=== PATIENT | female | born 1940 | race Caucasian/White ===

== ENCOUNTER → 2023-05-27 | Outpatient (REF) | payer MEDICARE, BC, SELFPAY | LOC: DHSLP | PROVIDERS: ATTENDING PHYSICIAN Internal Medicine Cardiovascular Disease; FAMILY PHYSICIAN Internal Medicine Geriatric Medicine | DX: G47.33 Obstructive sleep apnea (adult) (pediatric) (principal) | CPT/HCPCS: 95800 ==

== ENCOUNTER → 2023-06-04 12:07 | Outpatient (REF) | payer MEDICARE, BC, SELFPAY | LOC: CLAB 12:07 | PROVIDERS: ATTENDING PHYSICIAN Obstetrics & Gynecology | DX: N39.0 Urinary tract infection, site not specified (principal) | CPT/HCPCS: 87086 ==

== ENCOUNTER → 2023-06-09 07:13 | Outpatient (REF) | payer MEDICARE, BC, SELFPAY ==
[2023-06-09 07:53] LABS: % Basophils 0.7 % (0-2); % Eosinophils 2.2 % (0-6); % Immature Granulocytes 0.9 % (0-0.5); % Monocytes 10.9 % (1.7-9.3); % Neutrophils 59.3 % (42.2-75.2); Absolute Eosinophils 0.1 10^3/uL (0-0.7); Absolute Immature Granulocytes 0.1 10^3/uL (0-0.05); Absolute Lymphocytes 1.5 10^3/uL (1.2-3.4); Absolute Monocytes 0.6 10^3/uL (0.1-0.6); Absolute Neutrophils 3.5 10^3/uL (1.4-6.5); Hematocrit 45.6 % (37.0-47.0); Hemoglobin 15.1 g/dL (12.0-16.0); Mean Corp Hgb Conc. 33.1 g/dL (33.0-37.0); Mean Corpuscular Hgb 27.5 pg (27.0-31.0); Mean Corpuscular Volume 83.1 fL (81.0-99.0); Mean Platelet Volume 9.3 fL (7.4-10.4); Nucleated Red Blood Cells % 0 %; Platelet Count 230 10^3/uL (130-400); Red Blood Cell Count 5.49 10^6/uL (4.20-5.40); Red Cell Dist. Width 14.5 % (11.5-14.5); White Blood Cell Count 5.9 10^3/uL (4.8-10.8)
[2023-06-09 08:35] LABS: ALT (SGPT) 25 U/L (0-35); AST (SGOT) 31 U/L (14-36); Albumin 3.8 g/dl (3.5-5.0); Alkaline Phosphatase 97 U/L (38-126); Blood Urea Nitrogen 20 mg/dl (7-17); Calcium 9.8 mg/dl (8.4-10.2); Carbon Dioxide 30 mmol/L (22-30); Chloride 100 mmol/L (98-107); Glucose 94 mg/dl (70-99); HDL Cholesterol 44 mg/dl; Iron 89 ug/dl (37-170); LDL Cholesterol, Calculated 117 mg/dl; Magnesium 2.4 mg/dl (1.6-2.3); Sodium 137 mmol/L (135-145); Total Bilirubin 0.7 mg/dl (0.2-1.3); Total Cholesterol 196 mg/dl (50-199); Total Protein 6.6 g/dl (6.3-8.2); Triglyceride 176 mg/dl (10-149); Very Low Density Lipoprotein 35 mg/dl (0-30); eGFR > 60.00
[2023-06-09 08:46] LABS: Percent Saturation 28 % (20-50); Total Iron Binding Capacity 309 ug/dl (265-497)
[2023-06-09 08:48] LABS: Intact PTH 18.3 pg/ml (13.6-85.8)
[2023-06-09 08:53] LABS: Erythrocyte Sed Rate 4 mm/hour (0-20)
[2023-06-09 08:57] LABS: Vitamin D, 25-OH*** 68.5 ng/mL (30-80)
[2023-06-09 09:14] LABS: Ferritin 62.4 ng/ml (11.1-264.0); TSH 0.03 uIU/ml (0.47-4.68)
[2023-06-09 09:22] LABS: Free T4 1.25 ng/dl (0.78-2.19)
[2023-06-09 09:52] LABS: Folate > 20.0 ng/ml (2.76-20); Vitamin B12 801 pg/ml (239-931)
== END ==
LOC: REG 07:13
PROVIDERS: ATTENDING PHYSICIAN Internal Medicine Geriatric Medicine
DX: I48.0 Paroxysmal atrial fibrillation (principal); I10 Essential (primary) hypertension; I34.0 Nonrheumatic mitral (valve) insufficiency; E78.5 Hyperlipidemia, unspecified; R30.0 Dysuria; R06.02 Shortness of breath; K21.9 Gastro-esophageal reflux disease without esophagitis; F51.01 Primary insomnia; R53.83 Other fatigue; R53.82 Chronic fatigue, unspecified; R00.2 Palpitations; Z13.31 Encounter for screening for depression; E04.2 Nontoxic multinodular goiter; R55 Syncope and collapse; E55.9 Vitamin D deficiency, unspecified; E53.8 Deficiency of other specified B group vitamins
CPT/HCPCS: 36415; 71046; 80053; 80061; 82306; 82533; 82607; 82728; 82746; 83540; 83550; 83735; 83970; 84439; 84443; 85025; 85652; 86140

== ENCOUNTER → 2023-06-11 07:49 | Outpatient (REF) | payer MEDICARE, BC, SELFPAY | LOC: RAD 07:49 | PROVIDERS: ATTENDING PHYSICIAN Internal Medicine Cardiovascular Disease; FAMILY PHYSICIAN Internal Medicine Geriatric Medicine | DX: I65.23 Occlusion and stenosis of bilateral carotid arteries (principal) | CPT/HCPCS: 93880 ==

== ENCOUNTER → 2023-07-01 08:28 | Outpatient (REF) | payer MEDICARE, BC, SELFPAY ==
[2023-07-01 09:21] LABS: Free T4 1.19 ng/dl (0.78-2.19)
[2023-07-01 09:35] LABS: TSH 0.99 uIU/ml (0.47-4.68)
== END ==
LOC: OIDL 08:28
PROVIDERS: ATTENDING PHYSICIAN Internal Medicine Geriatric Medicine
DX: I48.0 Paroxysmal atrial fibrillation (principal)
CPT/HCPCS: 36415; 84439; 84443

== ENCOUNTER → 2023-08-27 14:22 | Outpatient (REF) | payer MEDICARE, BC, SELFPAY | LOC: RAD 14:22 | PROVIDERS: ATTENDING PHYSICIAN Nurse Practitioner Family; FAMILY PHYSICIAN Internal Medicine Geriatric Medicine | DX: M25.512 Pain in left shoulder (principal); M25.511 Pain in right shoulder; Z91.81 History of falling | CPT/HCPCS: 73030 ==

== ENCOUNTER → 2023-09-09 13:18 | Outpatient (REF) | payer MEDICARE, BC, SELFPAY | LOC: RCS 13:18 | PROVIDERS: ATTENDING PHYSICIAN Internal Medicine Cardiovascular Disease; FAMILY PHYSICIAN Internal Medicine Geriatric Medicine | DX: I34.0 Nonrheumatic mitral (valve) insufficiency (principal) | CPT/HCPCS: 93306 ==

== ENCOUNTER 2023-12-17 12:43 | Emergency (ER) | payer MEDICARE, BC, SELFPAY ==
[2023-12-17 12:45] VITALS: BP 140/85
--- NOTE | 2023-12-17 12:49 | ED.PDOC.TRB ---
ED Provider Triage
-
Patient seen by provider in Triage?: Seen in Triage
83-year-old female presents with 2 to 3 days worth of significant mid abdominal pain. Initially was associated with nonbloody diarrhea. No fever she is nauseous without vomiting. History of breast cancer but no other abdominal surgical history.
Tender diffusely on exam. She also has some urinary symptoms. Labs ordered. CT with IV contrast ordered. No chest pain. Sent in by PMD.
[2023-12-17 13:01] LABS: % Basophils 0.4 % (0-2); % Eosinophils 1.1 % (0-6); % Immature Granulocytes 0.7 % (0-0.5); % Lymphocytes 19.2 % (20.5-51.1); % Monocytes 6.9 % (1.7-9.3); % Neutrophils 71.7 % (42.2-75.2); Absolute Eosinophils 0.1 10^3/uL (0-0.7); Absolute Immature Granulocytes 0.1 10^3/uL (0-0.05); Absolute Lymphocytes 1.6 10^3/uL (1.2-3.4); Absolute Monocytes 0.6 10^3/uL (0.1-0.6); Absolute Neutrophils 5.9 10^3/uL (1.4-6.5); Hematocrit 43.2 % (37.0-47.0); Hemoglobin 14.9 g/dL (12.0-16.0); Mean Corp Hgb Conc. 34.5 g/dL (33.0-37.0); Mean Corpuscular Volume 81.1 fL (81.0-99.0); Mean Platelet Volume 9.6 fL (7.4-10.4); Nucleated Red Blood Cells % 0 %; Platelet Count 229 10^3/uL (130-400); Red Blood Cell Count 5.33 10^6/uL (4.20-5.40); White Blood Cell Count 8.3 10^3/uL (4.8-10.8)
[2023-12-17 13:21] LABS: ALT (SGPT) 22 U/L (0-35); AST (SGOT) 27 U/L (14-36); Albumin 4.3 g/dl (3.5-5.0); Alkaline Phosphatase 124 U/L (38-126); Blood Urea Nitrogen 15 mg/dl (7-17); Calcium 9.5 mg/dl (8.4-10.2); Carbon Dioxide 27 mmol/L (22-30); Chloride 99 mmol/L (98-107); Glucose 100 mg/dl (70-99); Lipase 190 U/L (23-300); Potassium 4.2 mmol/L (3.5-5.1); Sodium 136 mmol/L (135-145); Total Bilirubin 0.8 mg/dl (0.2-1.3); Total Protein 6.9 g/dl (6.3-8.2); eGFR > 60.00
--- NOTE | 2023-12-17 13:35 | ED.GENMED ---
History of Present Illness
General
Chief Complaint: Abdominal Symptoms
Source: patient and records
Exam Limitations: none
Time Seen by Provider: 12/17/23 13:33
Nursing documentation reviewed up to this point in time: agreed with
History of Present Illness
History of Present Illness:
Patient is a 83-year-old female presents to the emergency department complaining of lower abdominal pain that has been severe and started 2 days ago in the morning. Patient states that any food increases the pain. Patient was sent in by her
primary care physician. Patient is nauseous without vomiting. Patient had liquidy diarrhea and became very diaphoretic second to the pain 2 days ago. Patient went to her physician and then was referred to the emergency department. Patient denies
fever, chills, shortness of breath, chest pain, melena or hematochezia. Patient does have a history of diverticular disease.
Past History
Past History
ED Past Medical History: Arrthythmia, Cancer (Breast), GERD, HTN and Other (Breast cancer status post radiation therapy status post bilateral mastectomies, previous lower GI bleed, Lyme's disease, bundle branch block, neurocardiogenic syncope)
ED Past Surgical History: Other (Double mastectomy with reconstruction as well as abdominoplasty)
Social History
Tobacco: Non-smoker
Alcohol: None
Drug: None
Personal:
Family History
Family History: Other (COPD, coronary disease, heart failure)
Review of Systems
Review of Systems
All Other Systems: ROS reviewed and negative except as documented in HPI and ROS
Constitutional: Reports no symptoms
EENT: Reports no symptoms
Respiratory: Reports no symptoms
Cardiac: Reports no symptoms
ABD/GI: Reports abdominal pain, nausea, diarrhea and anorexia; Denies vomiting, bloody stools or black stools
: Reports no symptoms
Musculoskeletal: Reports no symptoms
Skin: Reports no symptoms
Neurological: Reports no symptoms
Hematologic/Lymphatic: Reports no symptoms
Psychiatric: Reports no symptoms
Phy Exam
Physical Exam
Physical Exam:
Physical Exam
General: mild distress, alert and appropriate, well nourished, well hydrated
HENT: Normocephalic, supple with no lymphadenopathy, no thyromegaly
Eyes: Clear sclera, conjuctiva without injection
Heart: Regular rhythm and rate. No S3, S4. No murmur. No NVD
Lungs: No respiratory distress, no stridor, lung sounds clear and equal bilaterally, chest wall symmetrical and nontender
Abdomen: Soft, moderate lower abdominal tenderness without guarding or rebound, no organomegaly, no CVA tenderness, BS good
Neuro: Alert and oriented x 3, CN II - XII intact, no motor focality, no cerebellar dysfunction
Skin: no rash
Psychiatric: well kept. interactive and cooperative
Extremities: No edema, cyanosis, tenderness
Course
Orders/Labs/Results
Orders:
Orders
12/17/23 12:49
CT Abd/pelvis W Iv Cont Urgent
Comment:
Reason For Exam: abdominal pain
12/17/23 12:54
Complete Blood Count/With Diff Urgent
Comprehensive Metabolic Panel Urgent
Lipase Urgent
12/17/23 14:29
Urinalysis Reflex To Culture Urgent
Date Specimen was Collected: 12/17/23
Time Specimen was Collected: 14:17
Urine Microscopic Reflex Cult Urgent
Urine Culture Urgent
TOM Source: U
Specimen Description:
Date Specimen was Collected: 12/17/23
Time Specimen was Collected: 14:17
12/17/23 14:40
0.9% Sodium Chloride 1000 ml [Nss] 1,000 ml IV BOLUS
HYDROmorphone [Dilaudid] 0.5 mg IV NOW STA
Ondansetron Injectable [Zofran] 4 mg IV NOW STA
Abnormal Lab Results
12/17/23 12/17/23
12:54 14:29
Abs Immat Gran (auto) 0.1 H 10^3/uL
(0-0.05)
Immature Gran % 0.7 H %
(0-0.5)
Lymphocytes % 19.2 L %
(20.5-51.1)
Glucose 100 H mg/dl
(70-99)
Ur Occult Blood Reflex Trace A
(Negative)
Urine Nitrite (Reflex) Positive A
(Negative)
Leukocyte Esterase Rfl 2+ A
(Negative)
Urine WBC (Reflex) 50-60 A /HPF
(0-5)
Urine Bacteria (Reflex) Few A
(Negative)
12/17/23 12:54
12/17/23 12:54
Vital Signs
Initial and Last Documented VS:
Initial Vital Signs
Temp Pulse Resp BP Pulse Ox
97.8 F 89 18 140/85 99
12/17/23 12:45 12/17/23 12:45 12/17/23 12:45 12/17/23 12:45 12/17/23 12:45
Last Documented Vital Signs
Temp Pulse Resp BP Pulse Ox
97.8 F 76 18 117/88 98
12/17/23 12:45 12/17/23 14:56 12/17/23 12:45 12/17/23 14:56 12/17/23 14:30
*Radiology
Radiology exam reviewed: radiology read reviewed (Diffuse enteritis)
*Pulse Oximetry
Patient hypoxic: no
*EKG
Interpreted by ED Provider?: NA
*Candy Packer Interpretation
Rate: Candy Packer- N/A
*Critical Care Note
Total Time (30-74mins, 75-104mins- exclusive of procedures): Not Applicable
Update Note
Update Note:
Patient's labs look fairly normal although does appear the patient has a shift to the left and may have cystitis. Presented this to the patient and suggested admission. Patient refused. Patient will be discharged home.
ED Attending Note
-
Portions of this chart may have been created with voice recognition software.� Occasional wrong word or��sound alike� substitutions may have occurred due to the inherent limitations of voice recognition software.
Discharge Plan
Departure
Patient Disposition: Home (Routine Discharge)
Date of Disposition: 12/17/23
Time of Disposition: 15:14
Patient with high blood pressure during this ER visit?: No
Condition: Fair
Covid-19: Not Applicable
Discharge Problem:
Acute inflammatory enteritis
Instructions: Diarrhea in teens and adults, [place] Diet, Abdominal Pain
Prescriptions:
New
metronidazole 500 mg tablet
500 mg PO TID Qty: 30 0RF
ondansetron 8 mg tablet,disintegrating
8 mg PO TID PRN (Reason: nausea and vomiting) Qty: 10 0RF
levofloxacin 500 mg Tablet
500 mg PO DAILY Qty: 10 0RF
No Action
red yeast rice 600 MG capsule
1 dose PO DAILY@1600
ascorbic acid (vitamin C) [Vitamin C] 500 MG tablet
500 mg PO NOON
DAVID-e 200 MG tablet
200 mg PO NOON
Eliquis 5 MG tablet
5 mg PO BID Qty: 60 3RF
omeprazole magnesium [Prilosec OTC] 20 MG tablet,delayed release (DR/EC)
20 mg PO DAILY Qty: 1 0RF
furosemide 40 mg Tablet
40 mg PO DAILY Qty: 30 0RF
potassium chloride 10 mEq tablet extended release
10 meq PO DAILY Qty: 30 0RF
coenzyme Q10 400 mg Capsule
400 mg PO NOON
taurine 1,000 mg Capsule
1,000 mg PO DAILY
zinc
30 mg PO NOON
metoprolol succinate 25 mg tablet extended release 24 hr
25 mg PO DAILY
quercetin 500 mg Capsule
1,000 mg PO NOON
Theragen Tablet
1 tab PO NOON
polymyxin B sulf-trimethoprim 10,000 unit- 1 mg/mL Drops
1 drp RIGHT EYE TID
Patient Comments:
04/08/2023, patient filled this medication on 04/04/2023 and is instructed to instill 1 drop into the right eye TID for 7 days.
Refresh Classic (PF) 1.4-0.6 % Dropperette
1 drp BOTH EYES BID
Saline Nasal 0.65 % Aerosol,[place]
1 spray INTRANASAL BID
cholecalciferol (vitamin D3) 125 mcg (5,000 unit) Tablet
125 mcg PO DAILY@1600
Referrals:
Aime Bustillo MD [Family Provider] - Follow up in 2-3 days
Interventions
Interventions:
*Risk Screen - Suicide Last Done: 12/17/23 14:55
*General Assessment Last Done: 12/17/23 14:55
*Neglect/Abuse Screening Last Done: 12/17/23 14:55
*ED COVID-19 Vaccine History Last Done: 12/17/23 14:55
JC-Cfpuvn-Xmdgmzitsw Assessment Last Done: 12/17/23 14:59
Discharge Date and Time
Print Language: KOREAN
[2023-12-17 14:30] VITALS: BP 117/88
[2023-12-17 14:44] LABS: Urine Albumin Trace (Neg - Trace); Urine Bilirubin Negative (Negative); Urine Character Slightly Cloudy (Clear); Urine Color Yellow; Urine Glucose Negative (Negative); Urine Ketone Negative (Negative); Urine Leukocyte 2+ (Negative); Urine Nitrite Positive (Negative); Urine Occult Blood Trace (Negative); Urine Urobilinogen Negative (Neg - 1+)
[2023-12-17 14:52] LABS: Urine Squamous Cell 0-2 /LPF (Few)
[2023-12-17 14:53] LABS: Urine Bacteria Few (Negative); Urine Red Blood Cell 0-2 /HPF (0-2); Urine White Cell 50-60 /HPF (0-5)
[2023-12-17 14:54] VITALS: BMI 32.5
[2023-12-17 14:56] VITALS: BP 117/88
[2023-12-17] MEDS: NSS 1000 IV (14:59)
== END 2023-12-17 16:03 | disposition home or self-care (01) ==
LOC: EMR 12:43
PROVIDERS: Physician Assistant; EMERGENCY PHYSICIAN Emergency Medicine; FAMILY PHYSICIAN Internal Medicine Geriatric Medicine
DX: K52.9 Noninfective gastroenteritis and colitis, unspecified (principal); R61 Generalized hyperhidrosis; K21.9 Gastro-esophageal reflux disease without esophagitis; I48.91 Unspecified atrial fibrillation; I11.0 Hypertensive heart disease with heart failure; I50.9 Heart failure, unspecified; E78.5 Hyperlipidemia, unspecified; M19.90 Unspecified osteoarthritis, unspecified site; I45.4 Nonspecific intraventricular block; F41.9 Anxiety disorder, unspecified; F32.A Depression, unspecified; Z79.01 Long term (current) use of anticoagulants; Z85.3 Personal history of malignant neoplasm of breast; Z90.13 Acquired absence of bilateral breasts and nipples; Z92.3 Personal history of irradiation; Z88.1 Allergy status to other antibiotic agents; Z88.0 Allergy status to penicillin; Z88.2 Allergy status to sulfonamides; Z88.8 Allergy status to other drugs, medicaments and biological substances; Z91.048 Other nonmedicinal substance allergy status; Z87.440 Personal history of urinary (tract) infections; Z85.828 Personal history of other malignant neoplasm of skin
CPT/HCPCS: 99285; 96360; 74177; 80053; 81003; 81015; 83690; 85025; 87077; 87086; 87186; Q9967

== ENCOUNTER → 2024-04-11 11:04 | Outpatient (REF) | payer MEDICARE, BC, SELFPAY | LOC: RAD 11:04 | PROVIDERS: ATTENDING PHYSICIAN Internal Medicine Endocrinology, Diabetes & Metabolism; FAMILY PHYSICIAN Internal Medicine Geriatric Medicine | DX: E04.2 Nontoxic multinodular goiter (principal) | CPT/HCPCS: 76536 ==

== ENCOUNTER → 2024-05-31 11:52 | Outpatient (REF) | payer MEDICARE, BC, SELFPAY | LOC: CLAB 11:52 | PROVIDERS: ATTENDING PHYSICIAN Nurse Practitioner Primary Care | DX: N30.00 Acute cystitis without hematuria (principal); N39.41 Urge incontinence | CPT/HCPCS: 87086 ==

== ENCOUNTER → 2024-06-15 08:28 | Outpatient (REF) | payer MEDICARE, BC, SELFPAY ==
[2024-06-15 08:46] LABS: % Basophils 0.6 % (0-2); % Eosinophils 1.5 % (0-6); % Immature Granulocytes 0.4 % (0-0.5); % Lymphocytes 24.2 % (20.5-51.1); % Monocytes 10.7 % (1.7-9.3); % Neutrophils 62.6 % (42.2-75.2); Absolute Eosinophils 0.1 10^3/uL (0-0.7); Absolute Lymphocytes 1.3 10^3/uL (1.2-3.4); Absolute Monocytes 0.6 10^3/uL (0.1-0.6); Absolute Neutrophils 3.3 10^3/uL (1.4-6.5); Hematocrit 46.9 % (37.0-47.0); Hemoglobin 15.4 g/dL (12.0-16.0); Mean Corp Hgb Conc. 32.8 g/dL (33.0-37.0); Mean Corpuscular Hgb 27.2 pg (27.0-31.0); Mean Corpuscular Volume 82.7 fL (81.0-99.0); Mean Platelet Volume 9.1 fL (7.4-10.4); Platelet Count 228 10^3/uL (130-400); Red Blood Cell Count 5.67 10^6/uL (4.20-5.40); Red Cell Dist. Width 14.3 % (11.5-14.5); White Blood Cell Count 5.3 10^3/uL (4.8-10.8)
[2024-06-15 10:29] LABS: ALT (SGPT) 19 U/L (0-35); AST (SGOT) 24 U/L (14-36); Alkaline Phosphatase 106 U/L (38-126); Blood Urea Nitrogen 15 mg/dl (7-17); Calcium 9.2 mg/dl (8.4-10.2); Carbon Dioxide 24 mmol/L (22-30); Chloride 103 mmol/L (98-107); Glucose 89 mg/dl (70-99); HDL Cholesterol 47 mg/dl; Iron 72 ug/dl (37-170); LDL Cholesterol, Calculated 113 mg/dl; Magnesium 2.2 mg/dl (1.6-2.3); Sodium 136 mmol/L (135-145); Total Bilirubin 0.6 mg/dl (0.2-1.3); Total Cholesterol 186 mg/dl (50-199); Total Protein 6.6 g/dl (6.3-8.2); Triglyceride 132 mg/dl (10-149); Very Low Density Lipoprotein 26 mg/dl (0-30); eGFR > 60.00
[2024-06-15 10:33] LABS: Free T4 1.33 ng/dl (0.78-2.19); Vitamin D, 25-OH*** 61.1 ng/mL (30-80)
[2024-06-15 10:50] LABS: Ferritin 33.7 ng/ml (11.1-264.0)
[2024-06-15 11:22] LABS: Vitamin B12 515 pg/ml (239-931)
[2024-06-17 14:35] LABS: TSH 1.39 uIU/ml (0.47-4.68)
== END ==
LOC: OIDL 08:28
PROVIDERS: ATTENDING PHYSICIAN Nurse Practitioner Primary Care
DX: K21.9 Gastro-esophageal reflux disease without esophagitis (principal); R10.0 Acute abdomen; E55.9 Vitamin D deficiency, unspecified; E78.2 Mixed hyperlipidemia; E03.8 Other specified hypothyroidism; Z79.899 Other long term (current) drug therapy; D50.0 Iron deficiency anemia secondary to blood loss (chronic)
CPT/HCPCS: 36415; 80053; 80061; 82306; 82607; 82728; 82746; 83540; 83735; 84439; 84443; 85025

== ENCOUNTER → 2024-06-29 08:38 | Outpatient (REF) | payer MEDICARE, BC, SELFPAY ==
[2024-06-29 10:40] LABS: Blood Urea Nitrogen 20 mg/dl (7-17); Calcium 9.4 mg/dl (8.4-10.2); Carbon Dioxide 28 mmol/L (22-30); Chloride 101 mmol/L (98-107); Glucose 74 mg/dl (70-99); Potassium 3.8 mmol/L (3.5-5.1); Sodium 135 mmol/L (135-145); eGFR > 60.00
[2024-06-29 11:11] LABS: TSH 0.02 uIU/ml (0.47-4.68)
== END ==
LOC: OIDL 08:38
PROVIDERS: ATTENDING PHYSICIAN Nurse Practitioner Primary Care
DX: E03.9 Hypothyroidism, unspecified (principal)
CPT/HCPCS: 36415; 80048; 84443

== ENCOUNTER → 2024-08-24 12:35 | Outpatient (REF) | payer MEDICARE, BC, SELFPAY | LOC: RCS 12:35 | PROVIDERS: ATTENDING PHYSICIAN Nuclear Medicine Nuclear Cardiology; FAMILY PHYSICIAN Internal Medicine Geriatric Medicine | DX: I10 Essential (primary) hypertension (principal); I50.30 Unspecified diastolic (congestive) heart failure | CPT/HCPCS: 93306 ==

== ENCOUNTER → 2024-09-06 14:20 | Outpatient (REF) | payer MEDICARE, BC, SELFPAY ==
[2024-09-06 17:02] LABS: Urine Albumin 2+ (Neg - Trace); Urine Bilirubin Negative (Negative); Urine Character Cloudy (Clear); Urine Color Yellow; Urine Glucose Negative (Negative); Urine Ketone Negative (Negative); Urine Leukocyte 3+ (Negative); Urine Nitrite Negative (Negative); Urine Occult Blood 4+ (Negative); Urine Urobilinogen Negative (Neg - 1+)
[2024-09-06 17:20] LABS: Urine Squamous Cell 0-2 /LPF (Few)
[2024-09-06 17:21] LABS: Urine Bacteria Few (Negative); Urine White Cell >100 /HPF (0-5)
== END ==
LOC: CLAB 14:20
PROVIDERS: ATTENDING PHYSICIAN Nurse Practitioner Family
DX: R30.0 Dysuria (principal)
CPT/HCPCS: 81003; 81015; 87086

== ENCOUNTER 2024-09-24 06:35 | Inpatient (IN) | payer MEDICARE, BC, SELFPAY ==
[2024-09-24] VITALS (10 sets, daily range): BP systolic 110–168; BP diastolic 69–103; O2SAT 95; BMI 31.9; BMI 32.0
[2024-09-24 04:06] LABS: % Basophils 0.7 % (0-2); % Eosinophils 0.7 % (0-6); % Immature Granulocytes 0.9 % (0-0.5); % Lymphocytes 21.1 % (20.5-51.1); % Monocytes 10.2 % (1.7-9.3); % Neutrophils 66.4 % (42.2-75.2); Absolute Immature Granulocytes 0.1 10^3/uL (0-0.05); Absolute Lymphocytes 1.2 10^3/uL (1.2-3.4); Absolute Monocytes 0.6 10^3/uL (0.1-0.6); Absolute Neutrophils 3.8 10^3/uL (1.4-6.5); Hemoglobin 15.2 g/dL (12.0-16.0); Mean Corp Hgb Conc. 33.8 g/dL (33.0-37.0); Mean Corpuscular Hgb 27.3 pg (27.0-31.0); Mean Corpuscular Volume 80.8 fL (81.0-99.0); Mean Platelet Volume 9.9 fL (7.4-10.4); Nucleated Red Blood Cells % 0 %; Platelet Count 202 10^3/uL (130-400); Red Blood Cell Count 5.57 10^6/uL (4.20-5.40); Red Cell Dist. Width 14.7 % (11.5-14.5); White Blood Cell Count 5.8 10^3/uL (4.8-10.8)
[2024-09-24 04:24] LABS: ALT (SGPT) 21 U/L (0-35); AST (SGOT) 25 U/L (14-36); Albumin 4.1 g/dl (3.5-5.0); Alkaline Phosphatase 88 U/L (38-126); Blood Urea Nitrogen 22 mg/dl (7-17); Calcium 9.6 mg/dl (8.4-10.2); Carbon Dioxide 20 mmol/L (22-30); Chloride 105 mmol/L (98-107); Estimated Creatinine Clearance 58 ml/min; Glucose 102 mg/dl (70-99); Potassium 4.2 mmol/L (3.5-5.1); Sodium 134 mmol/L (135-145); Total Bilirubin 0.7 mg/dl (0.2-1.3); Total Protein 6.7 g/dl (6.3-8.2); eGFR > 60.00
[2024-09-24 04:35] LABS: NT-proBNP 815 pg/ml; Troponin I < 0.012 ng/ml
[2024-09-24 04:38] LABS: COVID-19 Antigen Negative (Negative)
--- NOTE | 2024-09-24 05:27 | ED.GENMED ---
History of Present Illness
General
Chief Complaint: Breathing Problem
Source: patient
Time Seen by Provider: 09/24/24 03:52
History of Present Illness
History of Present Illness:
Note:
CHIEF COMPLAINT(S)
Difficulty breathing with chest tightness.
HISTORY OF PRESENT ILLNESS
The patient is an 84-year-old female presenting with difficulty breathing and a sensation of chest tightness described as feeling like a 'belt tied around' her chest. The symptoms were initially attributed to allergies but became significantly worse
tonight leading to her hospital visit. The tightness has since resolved and the patient currently feels normal. She reports no fever, cough, hemoptysis, or leg swelling. The tightness did not resemble past episodes of congestive heart failure. She
has a history of atrial fibrillation and congestive heart failure, but no prior heart attacks. The patient was moderately hypoxic with an oxygen saturation of 88% on room air, which improved to 95% on four liters of oxygen. She denies a history of
diabetes, hypertension, hyperlipidemia, stroke, or seizures.
PHYSICAL EXAM
- Cardiovascular: Heart rhythm regular; no murmurs auscultated.
- Respiratory: Presence of crackles upon lung auscultation.
- Extremities: No edema observed.
- Neck: No jugular venous distension.
- Neurological: Non-focal neurological exam with intact cranial nerves.
- Skin: Normal color noted.
PROBLEM LIST
Acute:
- Difficulty breathing with chest tightness
- Hypoxia
Chronic:
- Paroxysmal Atrial fibrillation
- Congestive heart failure
PLAN
The plan includes anticipated overnight hospitalization due to low oxygen saturation levels off supplementary oxygen to monitor and manage her respiratory status.
DIFFERENTIAL DIAGNOSIS
The Differential Diagnosis includes, in no particular order and is not limited to:
- Congestive Heart Failure exacerbation
- Chronic Obstructive Pulmonary Disease exacerbation
- Pulmonary embolism
- Pneumonia
- Pleural effusion
- Acute coronary syndrome
- Asthma exacerbation
- Anxiety-induced hyperventilation
- Interstitial lung disease
- Allergic reaction
EKG
My independent EKG interpretation is:
- Rhythm: Normal sinus rhythm
- Heart Rate: 90 bpm
- [place]: Left-axis deviation
- Abnormality: Right bundle branch block
- Ischemia: No signs of acute ischemia
Disposition:
DIAGNOSIS
- Hypoxia (ICD-10: R09.02)
- Possible Pneumonia (ICD-10: J18
-possible CHF
SUMMARY OF ENCOUNTER
The patient, an 84-year-old female, presented to the emergency department with difficulty breathing and chest tightness. Although initially self-attributed to allergies, symptoms worsened, prompting the visit. She was found to be hypoxic with an
oxygen saturation of 88% on room air, improving to 95% with supplemental oxygen. An independent interpretation of a chest x-ray raised concerns for asymmetry suggestive of pulmonary edema versus pneumonia.
CONSIDERATION FOR ADMISSION
Due to her hypoxia and potential diagnosis of pneumonia, there was consideration for admitting the patient to telemetry for close monitoring.
EMERGENCY TREATMENTS ADMINISTERED
The patient was treated with antibiotics as a precautionary measure against suspected pneumonia and managed with supplemental oxygen to stabilize her oxygen levels.
PLAN
The patient will be admitted to telemetry to monitor her respiratory status and provide appropriate management due to the mild bump in her BNP, indicating possible diuresis is needed.
INDEPENDENT INTERPRETATION OF TESTS
- My independent interpretation of the chest x-ray reveals asymmetric findings in the right lung, raising a question of pulmonary edema versus pneumonia.
- My independent interpretation of BNP shows a mild elevation, suggesting possible need for diuresis.
MANAGEMENT OF THE PATIENTS CARE WAS DISCUSSED WITH
Case was discussed with the hospitalists to ensure all possible considerations are taken into account for her treatment and potential admission. It is recommended to start antibiotics pending reassessment.
MEDICAL DECISION MAKING
The complexity of the patients respiratory condition, indicated by findings on imaging and laboratory tests, necessitated advanced imaging and discussions with hospitalists.. The risk of potential pneumonia, coupled with her chronic conditions like
atrial fibrillation and congestive heart failure, guided the decision towards careful monitoring on telemetry.
Past History
Past History
ED Past Medical History: Arrthythmia, Cancer (Breast), GERD, HTN and Other (Breast cancer status post radiation therapy status post bilateral mastectomies, previous lower GI bleed, Lyme's disease, bundle branch block, neurocardiogenic syncope)
ED Past Surgical History: Other (Double mastectomy with reconstruction as well as abdominoplasty)
Social History
Tobacco: Non-smoker
Alcohol: None
Drug: None
Personal:
Family History
Family History: Other (COPD, coronary disease, heart failure)
Phy Exam
Physical Exam
Physical Exam:
.
Scores
Heart Failure Risk
Heart Failure Risk Score: Yes
History of Stroke or TIA: No
History of intubation for respiratory distress: No
Heart rate on ED arrival >/= 110: No
SaO2 <90% on arrival on room air: Yes
HR >/=110 during 3min walk test (or too ill to perform test): Yes
ECG has acute ischemic changes: No
Urea >/=12mmol/L (BUN 33.6mg/dL): No
Serum CO2>/=35mmol/L: No
Troponin I or T elevated to [place] Level (0.4mg/dL): No
NT-proBNP >/=5,000ng/L (5,000pg/ml): No
HF Risk Score: 3
Admission Status: HIGH RISK 15.9% Consider SNF treatment or admission to hospital
Sepsis
Sepsis Screening
Sepsis Assessment: Sepsis Ruled Out
Sepsis Screen
Sepsis Screen: Sepsis Ruled Out
Date: 09/24/24
Time: 06:49
Course
Orders/Labs/Results
Orders:
Orders
09/24/24 03:05
Electrocardiogram (*1) Urgent
Reason for Study: Other
Other Reason for Exam: Respiratory Distress
Cardiac Monitoring- Treatment ONCE
EKG- Treatment ONCE
IV Insert/Care/Rem.- Treatment PRN
CR Chest - 2 Views Urgent
Comment:
Reason For Exam: respiratory distress
O2 Therapy [RESP] Urgent
Titrate/Wean O2 to maintain O2 sat greater than (%): 93
Special Instructions: TO MAINTAIN CONTINUOUS O2 SATS >/= 93%
Pulse Ox/cont/shift [RESP] Urgent
Quantity: 1
Special Instructions: continuous pulse ox
09/24/24 03:41
COVID-19 Antigen Urgent
Source: Nasal Swab
Complete Blood Count/With Diff Urgent
Comprehensive Metabolic Panel Urgent
NT-proBNP Urgent
Troponin I Urgent
Influenza A+B Rapid Molecular Urgent
TOM Source: Nasal Swab
Specimen Description:
09/24/24 04:37
CT Chest PE Study Urgent
Comment:
Reason For Exam: sob, hypoxia
09/24/24 06:10
Aztreonam [Azactam] 2,000 mg IV NOW STA
Doxycycline [Vibramycin] 100 mg PO NOW STA
09/24/24 06:11
Admit/Transfer Patient As Directed
Co-Sign Provider:
Level of Care: Inpatient admission
Assign to:: Telemetry
Physician / Group: Mohit
Diagnosis: Pneumonia
Reason for Telemetry: Other
Other Reason for Telemetry: atrial fibrillation
Date to Stop Telemetry: 09/26/24
Time to Stop Telemetry: 11:00
Reason for Hospitalization: atypical pneumonia
Expected length of stay greater than two midnights?: Yes
ELOS- Estimated Length of Stay in days: 2
I certify the patient meets the requirements for IP care: Yes
09/24/24 06:12
PRN Pain Medication Management As Directed
May give lesser potent ordered pain med per pt: Yes
preference::
Protocol:: Medication orders for pain may be administered in a
manner that supports deferring to patient preference
when the pt is:
- Requesting an ordered lesser potent pain medication.
Least to most potent pain medications are defined
as: acetaminophen < NSAID < tramadol < opioids
(morphine, oxycodone, hydromorphone).
- Requesting a lesser dose of the same medication IF
ORDERED.
- Requesting a less intrusive route of administration
if both routes are prescribed by the provider (PO <
IV).
09/24/24 06:13
Code Status As Directed
Resuscitation Status: Full Code
09/24/24 06:14
Sterile Water [Sterile Water For Injection] 10 ml IV NOW STA
09/26/24 11:00
DC Protocol for Telemetry ONCE
Abnormal Lab Results
09/24/24
03:41
RBC 5.57 H 10^6/uL
(4.20-5.40)
MCV 80.8 L fL
(81.0-99.0)
RDW 14.7 H %
(11.5-14.5)
Abs Immat Gran (auto) 0.1 H 10^3/uL
(0-0.05)
Immature Gran % 0.9 H %
(0-0.5)
Monocytes % 10.2 H %
(1.7-9.3)
Sodium 134 L mmol/L
(135-145)
Carbon Dioxide 20 L mmol/L
(22-30)
BUN 22 H mg/dl
(7-17)
Glucose 102 H mg/dl
(70-99)
09/24/24 03:41
09/24/24 03:41
Vital Signs
Initial and Last Documented VS:
Initial Vital Signs
Temp Pulse Resp BP Pulse Ox
98.2 F 101 24 168/103 89
09/24/24 02:58 09/24/24 02:58 09/24/24 02:58 09/24/24 02:58 09/24/24 02:58
Last Documented Vital Signs
Temp Pulse Resp BP Pulse Ox
98.2 F 82 32 145/91 94
09/24/24 02:58 09/24/24 05:30 09/24/24 05:30 09/24/24 05:00 09/24/24 05:30
*Pulse Oximetry
Patient hypoxic: yes
*Critical Care Note
Total Time (30-74mins, 75-104mins- exclusive of procedures): Not Applicable
ED Attending Note
-
Portions of this chart may have been created with voice recognition software.� Occasional wrong word or��sound alike� substitutions may have occurred due to the inherent limitations of voice recognition software.
Discharge Plan
Departure
Patient Disposition: Admit
Date of Disposition: 09/24/24
Time of Disposition: 05:28
Admit to: Telemetry
Presentation/result/management discussed w/ accepting MD/DO: Hospitalist
Discharge Problem:
Hypoxia
Interventions
Interventions:
*Risk Screen - Suicide Last Done: 09/24/24 02:58
*General Assessment Last Done: 09/24/24 02:58
*Neglect/Abuse Screening Last Done: 09/24/24 02:58
*ED- Fall Risk Assessment Last Done: 09/24/24 02:58
ED- Cardiac Assessment Last Done: 09/24/24 03:40
ED- Pulmonary Assessment Last Done: 09/24/24 03:40
--- NOTE | 2024-09-24 05:29 | HPS.HSE ---
Family Physician
-
Family Physician: Aime Bustillo
Chief Complaint
-
Shortness of breath
History of Present Illness
This is a 84-year-old female with past medical history significant coronary artery disease, atrial fibrillation on Eliquis, CHF with preserved EF, history of breast cancer status post bilateral mastectomy hypertension and hyperlipidemia who presents
to the emergency department with worsening shortness of breath and chest pressure that occurred just prior to coming into the emergency department. She actually was brought in hypoxic to 85% on room air.
Patient reported that she started having cough about 2 days ago. She reports that the cough is mostly nonproductive. She reports a hacking # cough. She also reported she has some chest tightness and difficulty inspiration fully. She denies
pleuritic chest pain. She denies any fevers or chills. She denies any lower extremity swelling or calf pain/tenderness.
Patient denies any acute weight gain, orthopnea PND.
She reported that she recently discontinued metoprolol due to facial erythema and redness. This was attributed to flushing when combined with vitamin C. However when she separate the use of this medication she continued to have a redness and
continue to hold metoprolol until she follows up with cardiology. Patient denies any itching. She denied having any wheezing. She denies any history of rash on her extremities or joints. She denies any joint swelling. Patient denies any other
new medications. She denies any recent travels or sick contacts. Just finished abx (leqaquin?) for UTI.
On arrival in the emergency department she was hypoxic to 85% on room air. She is satting 96% on 4 L. Her blood pressure was 149/90. Temperature was 98.2. Pulse rate was 92 and regular and respiratory rate was 20-30.
Chest x-ray shows hazy and/or groundglass opacities in the right upper lobe/midlung.
ECG shows normal sinus rhythm at a rate of 90 with right bundle branch block. Troponin was negative. BNP was 800.
COVID test was negative. Flu test was negative.
White count was 5.8 with normal hemoglobin and platelets. Electrolytes were all normal. BUN and creatinine were also normal.
Medical History
Past Medical History
Past Medical History: Reports Other ( breast cancer status post radiation, bilateral mastectomies, atrial fibrillation, coronary disease, hypertension, hyperlipidemia, prior GI bleeding)
Past Surgical History: Reports None
Social History
Tobacco: Non-smoker
Alcohol: None
Drug: None
Personal:
Living: Alone
Employment: Retired
Family History
Family History: Not pertinent
Allergies / Home Medications
Allergies reflects when Allergies were last updated in [facility].
Home Medications with original date entered in [facility]
Allergy/Medication List:
Allergies
Allergy/AdvReac Type Severity Reaction Status Date / Time
amoxicillin Allergy chills/swea Verified 09/22/22 12:56
ting
ampicillin Allergy Rash Verified 09/22/22 12:56
ceftriaxone Allergy Unknown Verified 09/22/22 12:56
Cephalosporins Allergy Unknown Verified 09/22/22 12:56
clarithromycin Allergy Unknown Verified 09/22/22 12:56
erythromycin base Allergy Rash Verified 09/22/22 12:56
Penicillins Allergy Rash Verified 09/22/22 12:56
Sulfa (Sulfonamide Allergy Nausea/'didn't Verified 09/22/22 12:56
Antibiotics) feel well'
hay fever Allergy sneezing Uncoded 09/22/22 12:56
Home Medications
ascorbic acid (vitamin C) 500 mg tablet (Vitamin C) 500 mg PO DAILY 05/21/15
red yeast rice 600 mg capsule 1 dose PO DAILY@1600 05/21/15
Saccharomyces boulardii 250 mg capsule 250 mg PO DAILY 06/03/19
Similasan Eye Drops 1 drp BOTH EYES BID 06/03/19
cholecalciferol (vitamin D3) 25 mcg (1,000 unit) tablet 1,000 units PO DAILY@1600 06/03/19
omega 1-aze-sav-fish oil 1,000 mg (120 mg-180 mg) capsule (Fish Oil) 1,000 mg PO DAILY@1600 06/03/19
s-adenosylmethionine 200 mg tablet (DAVID-e) 200 mg PO DAILY 06/03/19
sodium chloride 0.65 % nasal spray aerosol (Saline Nasal) 1 sprays intranasal BID 06/03/19
apixaban 5 mg tablet (Eliquis) 5 mg PO BID #60 tabs 06/08/19
omeprazole magnesium 20 mg tablet,delayed release (Prilosec OTC) 20 mg PO DAILY ##1 06/08/19
metoprolol succinate 25 mg tablet,extended release 24 hr 12.5 mg PO DAILY 09/22/22
vitamin B complex 1 cap PO DAILY@1600 09/22/22
Review of Systems
-
History Source: Patient
Constitutional: Reports No Symptoms
EENT: Reports No Symptoms
Respiratory: Reports Cough and Trouble Breathing
Cardiac: Reports Chest Pain
Abdomen/GI: Reports No Symptoms
: Reports No Symptoms
Musculoskeletal: Reports No Symptoms
Skin: Reports No Symptoms
Neurological: Reports No Symptoms
Endocrine: Reports No Symptoms
Hematologic/Lymphatic: Reports No Symptoms
Psych: Reports No Symptoms
Physical Exam
Vital Signs
Vital Signs
Temp Pulse Resp BP Pulse Ox
98.2 F 92 30 149/90 96
09/24/24 02:58 09/24/24 03:30 09/24/24 03:30 09/24/24 03:21 09/24/24 04:01
Physical Exam
General: Well Developed, Well Nourished and No Apparent Distress
HEENT: NormoCephalic, Moist mucous membranes and Atraumatic
Respiratory: Crackles (Right mid-lung), Non Labored Respirations and Accessory Resp Muscle Use; No Wheezes
Cardiac: S1/S2 and Regular Rhythm; No Murmur or Rub
GI: Soft, Non Tender, Non Distended and Normal Bowel Sounds; No Organomegaly
Rectal: Deferred by Provider
Musculoskeletal: No Clubbing, No Cyanosis and No Edema
Skin: No Rash
Neuro: Nonfocal/grossly intact
Psych: Calm
Laboratory Results
-
09/24/24 03:41
09/24/24 03:41
Laboratory Results
Total Bilirubin 0.7 mg/dl (0.2-1.3) 09/24/24 03:41
AST 25 U/L (14-36) 09/24/24 03:41
ALT 21 U/L (0-35) 09/24/24 03:41
Alkaline Phosphatase 88 U/L (38-126) 09/24/24 03:41
Troponin I < 0.012 ng/ml 09/24/24 03:41
Data Reviewed
-
Diagnostic Radiology: Image Personally Visualized and interpreted
Medical Tests (Nuc Med, Echo, EKG etc): Image Personally Visualized and interpreted
Lab Data: Labs Reviewed by me
Old Records: Reviewed
Impression/Plan
-
IMPRESSION:
84 y.o female with h/o CAD, AFIB, prior breast CA, CHF with reduced EF (last echo Aug 24 2024 LV ejection fraction is 50-55% mild concentric left ventricular hypertrophy. Stage I diastolic dysfunction suggestive of abnormal relaxation) coming in
with hypoxia after 2 days of mostly non-productive cough. She has chest tightness/discomfort with deep inspiration. Xray with focal hazy opacity/GGO in the R lung but no generalized pulm edema. She is not volume overloaded on exam. BNP is
equivocal for her. She is afebrile and without leukocytosis. Differential is normal without a neutrophil predominance. She is requiring 4 L and has mild increased WOB. Differential includes atypical pna, pe/infarct (less likely on therapeutic
AC), lung mass? and possibly CHF. No known risk factors.
PLAN:
1. 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
- admit to telemetry
- supportive care with oxygen for now
- blood cultures if febrile
- sputum cultures
- CT PE study
- will get procalcitonin, legionella and strep ag
- flu/covid negative
- inflammatory panel
- Given degree of hypoxia will start empiric abx, given allergies and recent abx use will administer aztreonam/doxycycline
- Pulmonary consultation
2. AFIB - off rate control for rash. No rash currently. Rate sinus at 90.
- monitor on telemetry
- continue apixaban
- consider diltiazem if tachycardic
3. CHF - euvolemic, No JVD. No peripheral edema. Crackles heard focally on the right lung only. EF 55% with normal wall motion last month. NO cp, normal trop. Normal rates. GGO could reflect some fluid build up and BNP is equivocal
- continue lasix 40 daily for now
- salt restriction
- daily weight and i/os
- will give one time lasix 40 iv today
- if procal is negative leaning towards boop vs CHF
DVT PPX - on apixaban
Code status - Full Code
[2024-09-24] MEDS: AZACTAM 2000 MG IV (07:03)
[2024-09-24] MEDS: STERILE WATER FOR INJECTION 10 ML IV (07:04)
[2024-09-24] MEDS: VIBRAMYCIN 100 MG PO (07:04)
--- NOTE | 2024-09-24 07:38 | W.PN.HOSP.TC ---
Today's Communication/Plan
-
Doing better on IV Lasix; continue
Assessment / Plan
Assessment / Plan
Physical Exam
General: Well Developed, Well Nourished and No Apparent Distress
HEENT: NormoCephalic, Moist mucous membranes and Atraumatic
Respiratory: Crackles (Right mid-lung), Non Labored Respirations and Accessory Resp Muscle Use; No Wheezes
Cardiac: S1/S2 and Regular Rhythm
GI: Soft, Non Tender, Non Distended and Normal Bowel Sounds
Musculoskeletal: No Cyanosis and No Edema
Skin: Warm. Dry.
Neuro: Nonfocal/grossly intact
Psych: Calm
Assessment/Plan
84-year-old female with past medical history significant coronary artery disease, atrial fibrillation on Eliquis, CHF with preserved EF, history of breast cancer status post bilateral mastectomy hypertension and hyperlipidemia who presented to the
emergency department with worsening shortness of breath and chest pressure that occurred just prior to coming into the emergency department. She actually was brought in hypoxic to 85% on room air. Patient reported that she started having cough
(mostly nonproductive) about 2 days prior to presentation. She also reported she has some chest tightness and difficulty inspiration fully. She denied pleuritic chest pain, fevers or chills. She denied any lower extremity swelling or calf
pain/tenderness. She also denied any acute weight gain, orthopnea or PND. She reported that she recently discontinued metoprolol due to facial erythema and redness. This was attributed to flushing when combined with vitamin C. However when she
separate the use of this medication she continued to have a redness and continue to hold metoprolol until she followed up with cardiology. She denied having any wheezing. She denies any history of rash on her extremities or joints. She denied any
joint swelling. Patient denied any other new medications. She denied any recent travels or sick contacts. Just finished abx (leqaquin?) for UTI. On arrival in the emergency department she was hypoxic to 85% on room air. But she had oxygen
saturation of 96% on 4 L. Her blood pressure was 149/90 mmHg. Temperature was 98.2 F. Pulse rate was 92 and regular and respiratory rate was 20-30. Chest x-ray showed hazy and/or groundglass opacities in the right upper lobe/midlung. ECG shows
normal sinus rhythm at a rate of 90 with right bundle branch block. Troponin was negative. BNP was 800. COVID test was negative. Flu test was negative. White count was 5.8 with normal hemoglobin and platelets. Electrolytes were all normal. BUN
and creatinine were also normal.
1. 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
- Continue to monitor on telemetry
- ProBNP in the s, patient is obese
- supportive care with oxygen for now
- CT PE study and CXR results noted -- although mentions pneumonia, doubtful this is pneumonia per my communication with pulmonary today
- flu/covid negative
- Pulmonary consultation
- Patient appears to be improving with IV Lasix -- discussed with pulmonary who recommended continuing IV Lasix
- Stop aztreonam/doxycycline since it is doubtful this is pneumonia
2. AFIB - off rate control for rash. No rash currently. Rate sinus at 90.
- monitor on telemetry
- continue apixaban
- consider diltiazem if tachycardic
3. CHF - euvolemic, No JVD. No peripheral edema. Crackles heard focally on the right lung only. EF 55% with normal wall motion last month. NO cp, normal trop. Normal rates. GGO could reflect some fluid build up and BNP is equivocal
- continue IV Lasix for now
- salt restriction
- daily weight and i/os
Mitral Regurgitation
Right Breast Implant on Preliminary CT?
Left Breast Postsurgical Change on Preliminary CT?
DVT PPX - on apixaban
Code status - Full Code
Anticipated Discharge: 24 - 48 hours
Subjective/Interval History
-
Date of Service: September 24, 2024
Patient was seen and examined. She reported that her shortness of breath and presenting symptoms have improved a lot today. She denied any new complaints.
Objective Data
-
Labs:
Laboratory Results
09/24/24
03:41
WBC 5.8
Hgb 15.2
Hct 45.0
Plt Count 202
Sodium 134 L
Potassium 4.2
Chloride 105
Carbon Dioxide 20 L
BUN 22 H
Creatinine 0.7
Glucose 102 H
Calcium 9.6
Total Bilirubin 0.7
AST 25
ALT 21
Alkaline Phosphatase 88
Vital Signs:
Vital Signs
Temp Pulse Resp BP Pulse Ox
98.2 F 87 19 145/91 95
09/24/24 02:58 09/24/24 05:45 09/24/24 05:45 09/24/24 05:00 09/24/24 05:45
--- NOTE | 2024-09-24 07:45 | PTCARENOTE ---
pt arrived to floor from ER via stretcher. ambulated to room with supervision, denies sob, 4l NC maintained, telemetry maintained, denies any complaints, vss, oriented to room and use of call crain, will continue to monitor.
[2024-09-24] MEDS: ELIQUIS 5 MG PO ×2 (08:18→20:14)
[2024-09-24] MEDS: MUCINEX 600 MG PO ×2 (08:18→20:14)
[2024-09-24] MEDS: REFRESH EYE DROPS (PF) 1 DROPS BOTH EYES ×2 (08:18→20:14)
[2024-09-24] MEDS: KCL 10 MEQ PO (08:19)
[2024-09-24] MEDS: PROTONIX 40 MG PO (08:22)
[2024-09-24] MEDS: LASIX 40 MG IV ×2 (08:23→17:09)
[2024-09-24 08:57] LABS: Erythrocyte Sed Rate 5 mm/hour (0-20)
[2024-09-24 09:27] LABS: C-Reactive Protein < 5.00 mg/L (0.0-10.00)
[2024-09-24 09:32] LABS: Procalcitonin < 0.05 ng/ml (0.0-0.25)
[2024-09-24] MEDS: OCEAN, SALINE MIST 1 SPRAYS NASAL ×2 (09:54→20:15)
--- NOTE | 2024-09-24 11:09 | PTCARENOTE ---
patient 95% on room air after ambulating from BR back to bed. no sob, will continue to monitor.
--- NOTE | 2024-09-24 11:58 | CON.PUL ---
Consultation
Consultation Request
Date/Time Consultation Requested: 09/24/2024
Date/Time Consultation Performed: 09/24/2024
Requesting Provider: Griselda Rueda
Performing Provider: Jonathan Donovan
Reason for Consultation: Shortness of breath
Medical History
-
Chief Complaint: Shortness of breath
History of Present Illness:
Patient is 84-year-old female with known history of atrial fibrillation paroxysmal, heart failure with preserved ejection fraction and mitral regurgitation who presents to the hospital for 2 to 3 days history of shortness of breath. Patient denies
any cough but does report exertional dyspnea, orthopnea and sense of chest pressure as if a band is being tightened around her chest. In the emergency room she was noted to be mildly hypoxic was 85% on room air which improved with supplemental
oxygen. Does not report any sick contacts. No runny nose or sore throat reported. Patient was otherwise afebrile and has a normal white count. She was started on aztreonam and doxycycline and was admitted to the hospitalist service. Pulmonary
consultation was requested for further input.
Past Medical History
Past Medical History: Reports Other ( breast cancer status post radiation, bilateral mastectomies, atrial fibrillation, coronary disease, hypertension, hyperlipidemia, prior GI bleeding, Mitral regurgitation)
Past Surgical History: Reports None
Social History
Tobacco: Never smoked. No Pets at home. No occupational exposures.
Alcohol: None
Drug: None
Personal:
Living: Alone
Employment: Retired
Family History
Family History: Not pertinent
Allergies / Home Medications
Allergies / Home Medications
Allergies
Allergy/AdvReac Type Severity Reaction Status Date / Time
adhesive tape Allergy reddness Verified 12/17/23 12:44
amoxicillin Allergy chills/swea Verified 12/17/23 12:44
ting
ampicillin Allergy Rash Verified 12/17/23 12:44
ceftriaxone Allergy Unknown Verified 12/17/23 12:44
Cephalosporins Allergy Unknown Verified 12/17/23 12:44
clarithromycin Allergy Unknown Verified 12/17/23 12:44
erythromycin base Allergy Rash Verified 12/17/23 12:44
Penicillins Allergy Rash Verified 12/17/23 12:44
pollen extracts Allergy HAYFEVER Verified 12/17/23 12:44
-SNEEZING
Sulfa (Sulfonamide Allergy Nausea/'didn't Verified 12/17/23 12:44
Antibiotics) feel well'
Home Medications
�Medication �Instructions �Recorded �Confirmed �Last Taken �Type
ascorbic acid (vitamin C) 500 mg 500 mg PO NOON Supplement 05/21/15 09/24/24 04/07/23 History
tablet (Vitamin C)
red yeast rice 600 mg capsule 1 dose PO DAILY@1600 Supplement 05/21/15 09/24/24 04/07/23 History
s-adenosylmethionine 200 mg tablet 200 mg PO NOON Supplement 06/03/19 09/24/24 04/07/23 History
(DAVID-e)
apixaban 5 mg tablet (Eliquis) 5 mg PO BID #60 tabs 06/08/19 09/24/24 04/08/23 Rx
furosemide 40 mg tablet 40 mg PO DAILY #30 tabs 09/26/22 09/24/24 04/08/23 Rx
potassium chloride 10 mEq 10 meq PO DAILY #30 tabs 09/26/22 09/24/24 04/08/23 Rx
tablet,extended release
coenzyme Q10 400 mg capsule 400 mg PO NOON 12/09/22 09/24/24 04/07/23 History
taurine 1,000 mg capsule 1,000 mg PO DAILY 12/09/22 09/24/24 04/08/23 History
zinc 30 mg PO NOON 12/09/22 09/24/24 04/07/23 History
quercetin 500 mg capsule 500 mg PO NOON 04/06/23 09/24/24 04/07/23 History
cholecalciferol (vitamin D3) 125 125 mcg PO DAILY@1600 04/08/23 09/24/24 04/07/23 History
mcg (5,000 unit) tablet
polyvinyl alcohol-povidone (PF) 1 drp BOTH EYES BID 04/08/23 09/24/24 04/08/23 History
1.4 %-0.6 % eye drops in a
dropperette (Refresh Classic (PF))
sodium chloride 0.65 % nasal spray 1 spray intranasal BID 04/08/23 09/24/24 04/08/23 History
aerosol (Saline Nasal)
therapeutic multivitamin 1 tab PO NOON 04/08/23 09/24/24 04/07/23 History
omeprazole magnesium 20 mg 20 mg PO DAILY 09/24/24 09/24/24 Unknown History
tablet,delayed release (Prilosec
OTC)
Review of Systems
-
Hematologic/Lymphatic: Other (Negative except as stated in HPI)
Vitals / Labs / Diagnostic Testing
Vital Signs
Temp Pulse Resp BP Pulse Ox
98.8 F 81 18 152/85 95
09/24/24 11:09 09/24/24 11:09 09/24/24 11:09 09/24/24 11:09 09/24/24 11:09
Lab Data
09/24/24 03:41
09/24/24 03:41
Microbiology
09/24/24 03:41 Nasal Swab Influenza Types A & B (JAGJIT) - Final
Negative for Influenza A & B, NAAT
Negative results must be combined with clinical observations
and patient history.
Nucleic Acid Amplification test (NAAT)performed on the
[employer] platform.
Diagnostic Testing:
Physical Exam
-
HEENT: Normocephalic
Cardiovascular: S1/S2
Respiratory: Rales (Few inspiratory basal crackles )
GI: Soft and Non Distended
Neurology: Awake and Alert
Skin: Warm
General: Comfortable
Assessment
-
#1. B/L Interstitial infiltrates, likely cardiogenic pulmonary edema. Known h/o HFpEF with mild to moderate MR.
- Patient is afebrile, normal WBC count and has negative Procalcitonin. Also no reported cough. BNP elevated at 815. CRP normal
- Bacterial pneumonia is unlikely. D/c Aztreonam and Doxycycline
- Viral pneumonias, atypical infections. inflammatory pneumonitis and Pulmonary edema are main differentials
- Start Lasix 40 mg Iv BID and get a short term f/u 2 view CXR in AM
- Influenza A, B screen negative. WBC count normal at 5.8K. COVID-19 screen negative. No cough or expectoration
#2. Dyspnea with orthopnea.
- No reported cough, expectoration or fever. reports episodic palpitations and chest pressure.
- Currently saturating well on room air, 95%. No PE noted.
- Diuresis and monitor.
- Hold off antibiotics for now
Other medical diagnoses:
- Paroxysmal atrial fibrillation status post ablation in 2022. Reports episodic palpitations
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
- Known history of mild to moderate mitral regurgitation
- Ascending aortic root dilation
- History of breast cancer s/p mastectomy, reconstruction chemotherapy and radiation
- History of GERD
- History of nonsustained ventricular tachycardia
Total time spent on this consultation/encounter __62__ minutes which includes review of history, physical exam, medications, laboratory data, personal review of imaging, extensive review of outpatient records, discussion with care team and
respiratory therapy.
Data:
CT-PE 09/2024: . No evidence of pulmonary embolism or thoracic aortic dissection.
2. Extensive groundglass opacity is seen bilaterally, right greater than left. Pattern is most suggestive of pneumonia, atypical pulmonary edema is a less likely differential consideration.
3. Tiny bilateral pleural effusions.
4. Peripherally calcified 1.4 cm right thyroid nodule.
CXR 09/2024: New findings suggesting moderate mid right lung pneumonia.Clinical and laboratory correlation recommended. A mass is less likely. Repeat examination in 2 weeks following treatment is recommended.
Stress test 11/2022: Fixed defect noted consistent with infarction.
ECHO 08/2024: Normal left ventricular size and systolic function. No regional wall motion
abnormalities are seen. LV ejection fraction is 50-55% by visual assessment.
Mild concentric left ventricular hypertrophy. Stage I diastolic dysfunction
suggestive of abnormal relaxation.
Normal right ventricular size and function.
Mild to moderate mitral regurgitation.
Thickened trileaflet aortic valve with normal leaflet excursion. Mild aortic
regurgitation. Pressure halftime across the aortic valve is 487 ms.
Mild tricuspid regurgitation. Estimated pulmonary artery pressure of 25 mmHg
assuming a right atrial pressure of 3 mmHg.
Mildly dilated ascending aorta. Ascending aorta measures 4.1 cm.
Compared to the previous echo 09/09/23, there is little significant change.
[facility] 05/2019: 1: Systemic hypertension
2: Normal left ventricular function with EF 59%
3. Mild to moderate mitral regurgitation
4. No significant CAD
[2024-09-24 14:20] LABS: Troponin I < 0.012 ng/ml
[2024-09-25 03:00] VITALS: BP 122/76
[2024-09-25 04:56] VITALS: BMI 31.3
[2024-09-25 06:16] LABS: % Basophils 0.5 % (0-2); % Eosinophils 1.8 % (0-6); % Immature Granulocytes 0.4 % (0-0.5); % Lymphocytes 26.4 % (20.5-51.1); % Monocytes 12.1 % (1.7-9.3); % Neutrophils 58.8 % (42.2-75.2); Absolute Eosinophils 0.1 10^3/uL (0-0.7); Absolute Lymphocytes 1.5 10^3/uL (1.2-3.4); Absolute Monocytes 0.7 10^3/uL (0.1-0.6); Absolute Neutrophils 3.3 10^3/uL (1.4-6.5); Hematocrit 45.9 % (37.0-47.0); Hemoglobin 15.2 g/dL (12.0-16.0); Mean Corp Hgb Conc. 33.1 g/dL (33.0-37.0); Mean Corpuscular Hgb 26.9 pg (27.0-31.0); Mean Corpuscular Volume 81.1 fL (81.0-99.0); Mean Platelet Volume 10.2 fL (7.4-10.4); Nucleated Red Blood Cells % 0 %; Platelet Count 215 10^3/uL (130-400); Red Blood Cell Count 5.66 10^6/uL (4.20-5.40); Red Cell Dist. Width 14.8 % (11.5-14.5); White Blood Cell Count 5.6 10^3/uL (4.8-10.8)
[2024-09-25 06:40] LABS: Blood Urea Nitrogen 19 mg/dl (7-17); Calcium 9.2 mg/dl (8.4-10.2); Carbon Dioxide 22 mmol/L (22-30); Chloride 106 mmol/L (98-107); Estimated Creatinine Clearance 57 ml/min; Glucose 88 mg/dl (70-99); Magnesium 2.2 mg/dl (1.6-2.3); Potassium 4.1 mmol/L (3.5-5.1); Sodium 136 mmol/L (135-145); eGFR > 60.00
[2024-09-25 07:00] VITALS: BP 109/75
[2024-09-25] MEDS: REFRESH EYE DROPS (PF) 1 DROPS BOTH EYES (08:06)
[2024-09-25] MEDS: ELIQUIS 5 MG PO (08:06)
[2024-09-25] MEDS: MUCINEX 600 MG PO (08:06)
[2024-09-25] MEDS: PROTONIX 40 MG PO (08:07)
[2024-09-25] MEDS: LASIX 40 MG IV (08:07)
[2024-09-25] MEDS: KCL 10 MEQ PO (08:07)
[2024-09-25] MEDS: OCEAN, SALINE MIST 1 SPRAYS NASAL (08:08)
[2024-09-25 11:11] VITALS: BP 123/81
--- NOTE | 2024-09-25 11:31 | W.PN.HOSP.TC ---
Today's Communication/Plan
-
Discharge today
Assessment / Plan
Assessment / Plan
Physical Exam
General: Well Developed, Well Nourished and No Apparent Distress
HEENT: NormoCephalic, Moist mucous membranes and Atraumatic
Respiratory: Crackles (Right mid-lung), Non Labored Respirations and Accessory Resp Muscle Use; No Wheezes
Cardiac: S1/S2 and Regular Rhythm
GI: Soft, Non Tender, Non Distended and Normal Bowel Sounds
Musculoskeletal: No Cyanosis and No Edema
Skin: Warm. Dry.
Neuro: Nonfocal/grossly intact
Psych: Calm
Assessment/Plan
84-year-old female with past medical history significant coronary artery disease, atrial fibrillation on Eliquis, CHF with preserved EF, history of breast cancer status post bilateral mastectomy hypertension and hyperlipidemia who presented to the
emergency department with worsening shortness of breath and chest pressure that occurred just prior to coming into the emergency department. She actually was brought in hypoxic to 85% on room air. Patient reported that she started having cough
(mostly nonproductive) about 2 days prior to presentation. She also reported she has some chest tightness and difficulty inspiration fully. She denied pleuritic chest pain, fevers or chills. She denied any lower extremity swelling or calf
pain/tenderness. She also denied any acute weight gain, orthopnea or PND. She reported that she recently discontinued metoprolol due to facial erythema and redness. This was attributed to flushing when combined with vitamin C. However when she
separate the use of this medication she continued to have a redness and continue to hold metoprolol until she followed up with cardiology. She denied having any wheezing. She denies any history of rash on her extremities or joints. She denied any
joint swelling. Patient denied any other new medications. She denied any recent travels or sick contacts. Just finished abx (leqaquin?) for UTI. On arrival in the emergency department she was hypoxic to 85% on room air. But she had oxygen
saturation of 96% on 4 L. Her blood pressure was 149/90 mmHg. Temperature was 98.2 F. Pulse rate was 92 and regular and respiratory rate was 20-30. Chest x-ray showed hazy and/or groundglass opacities in the right upper lobe/midlung. ECG shows
normal sinus rhythm at a rate of 90 with right bundle branch block. Troponin was negative. BNP was 800. COVID test was negative. Flu test was negative. White count was 5.8 with normal hemoglobin and platelets. Electrolytes were all normal. BUN
and creatinine were also normal.
SOB - RESOLVED -- secondary to atypical pneumonia (less likely) versus pulmonary edema from CHF (more likely)
Bilateral Interstitial infiltrates, likely cardiogenic pulmonary edema. Known h/o HFpEF with mild to moderate MR.
- Continue to monitor on telemetry
- ProBNP in the s, patient is obese
- supportive care with oxygen for now
- CT PE study and CXR results noted -- although mentions pneumonia, doubtful this is pneumonia per my communication with pulmonary today, but could be atypical pneumonia
- flu/covid negative
- Pulmonary consultation
- Patient appeared to improve significantly with intravenous Lasix
- Stop aztreonam/doxycycline since it is doubtful this is pneumonia
- I discussed on 09/25/24 patient's case over the phone with pulmonary Dr. Donovan: plan is for Doxycycline 100 mg BID for 5 days, resume home Lasix, follow-up with cardiology and pulmonary
outpatient
Paroxysmal atrial fibrillation status post ablation in 2022. Reports episodic palpitations
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
Known history of mild to moderate mitral regurgitation
Ascending aortic root dilation
- monitor on telemetry
- continue apixaban
- consider diltiazem if tachycardic
Acute HFpEF
- continue IV Lasix for now
- salt restriction
- daily weight and i/os
History of nonsustained ventricular tachycardia
Mitral Regurgitation
Right Breast Implant on Preliminary CT?
History of breast cancer s/p mastectomy, reconstruction chemotherapy and radiation
Left Breast Postsurgical Change on Preliminary CT?
History of GERD
DVT PPX - on apixaban
Code status - Full Code
More than 30 minutes spent in discharge including
Final examination of the patient
Summarizing hospital stay
Instructions for continuing care to all relevant caregivers
Preparation of discharge records, prescriptions, and referral forms
Total time spent (in minutes): 35
Anticipated Discharge: Today
Subjective/Interval History
-
Date of Service: September 25, 2024
Patient was seen and examined. She was doing well on room air oxygen, she denied any chest pain, shortness of breath or any other complaints.
Objective Data
-
Labs:
Laboratory Results
09/25/24
04:53
WBC 5.6
Hgb 15.2
Hct 45.9
Plt Count 215
Sodium 136
Potassium 4.1
Chloride 106
Carbon Dioxide 22
BUN 19 H
Creatinine 0.7
Glucose 88
Calcium 9.2
Vital Signs:
Vital Signs
Temp Pulse Resp BP Pulse Ox
97.7 F 79 16 123/81 95
09/25/24 11:11 09/25/24 11:11 09/25/24 11:11 09/25/24 11:11 09/25/24 11:11
I&O
09/24/24 09/25/24 09/26/24
06:59 06:59 06:59
Intake Total 720 / 720
Balance 720 / 720
[2024-09-25 14:06] VITALS: BP 124/83; BP 128/79; BP 128/80; PULSE 82; PULSE 86; PULSE 91
--- NOTE | 2024-09-25 14:32 | CM ---
Addendum entered by Blanca Bashir 09/25/24 15:35:
Pt discharged to home with no needs. Driving herself home.
Original Note:
Patient admitted with pneumonia. She lives alone in a 2 STH with one entry step. She is independent with ambulation and ADLs, drives, no DME
Plan: Discharge to home watch for O2 needs.
--- NOTE | 2024-09-25 15:19 | W.DCSUMMARY ---
Discharge Summary
Discharge Data
Date of Admission: 09/24/24
Date of Discharge: 09/25/24
Total time spent discharging patient (in min): 35
-
Pending Results: No
Hospital Course
84-year-old female with past medical history significant coronary artery disease, atrial fibrillation on Eliquis, CHF with preserved EF, history of breast cancer status post bilateral mastectomy hypertension and hyperlipidemia who presented to the
emergency department with worsening shortness of breath and chest pressure. She reported having a dry cough. Chest imaging showed ground-glass opacities. COVID and Influenza tests were negative. Patient was started on antibiotics for pneumonia as
well as intravenous Lasix. Pulmonary was consulted. Given that patient was afebrile, had normal white blood cell count and negative Procalcitonin, it was determined that bacterial pneumonia was unlikely, and antibiotics were discontinued (but
patient was continued on Doxycycline at the time of discharge in case there was an atypical pneumonia). Patient's bilateral interstitial infiltrates were thought to likely be cardiogenic pulmonary edema. Patient's symptoms improved significantly
with intravenous Lasix. Patient was discharged with Doxycycline and instructed to continue her home Lasix, follow dietary restrictions, and follow-up outpatient with pulmonary and cardiology.
Discharge Plan
-
Patient Disposition: Home (Routine Discharge)
Discharge Diagnosis/Procedures: Shortness of Breath - RESOLVED -- secondary to atypical pneumonia (less likely) versus pulmonary edema from congestive heart failure (more likely)
Bilateral Interstitial infiltrates, likely cardiogenic pulmonary edema. Known history of heart failure with preserved ejection with mild to moderate mitral regurgitation.
Thyroid Nodule
Extensive ground-glass opacity bilaterally
Bilateral Pleural Effusions
Paroxysmal atrial fibrillation status post ablation in 2022. Reports episodic palpitations
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
Known history of mild to moderate mitral regurgitation
Ascending aortic root dilation
Acute Heart Failure with Preserved Ejection Fraction
History of non-sustained ventricular tachycardia
Mitral Regurgitation
Right Breast Implant on Preliminary CT?
History of breast cancer s/p mastectomy, reconstruction chemotherapy and radiation
Left Breast Postsurgical Change on Preliminary CT?
History of GERD
Condition: Good
Diet: Low Fat, Low Cholesterol, Low Sodium and Restrict fluids to 64 oz
Activity: As tolerated
Specialty Instructions: Weigh Daily- Call MD for wt gain/loss 3 lbs overnight/5 lbs in 1 week
Activity Restrictions/Additional Instructions:
As your hospital doctors have advised you, please call 911 and return to the emergency room right away if you get any new symptom, including but not limited to fever, chills, dizziness, chest pain, shortness of breath, nausea, vomiting, abdominal
pain etc.
Instructions: Doxycycline, Guaifenesin
Referrals:
Jonathan Donovan MD [Active, Pulmonary Medicine] - in two to four weeks
Good Baez DO [Active, Cardiology] - in less than 1 week
Referral Note: Hospital Follow-Up for CHF exacerbation
Aime Bustillo MD [Family Provider, Internal Medicine] - in less than 1 week
Referral Note: Hospital Follow-Up
Additional Discharge Medication Instructions: First dose of 5-day Doxycycline course will be given in the hospital
Doxycycline is a new medication being given to you in case you have atypical pneumonia.
Guaifenesin is a new medication to help with cough.
Prescriptions:
New
guaifenesin 600 mg Tablet Extended Release 12hr
600 mg PO Q12 Qty: 14 0RF
doxycycline hyclate 100 mg tablet
100 mg PO BID Qty: 9 0RF
Rx Instructions:
First dose September 26, 2024 morning
Continued
red yeast rice 600 MG capsule
1 dose PO DAILY@1600
ascorbic acid (vitamin C) [Vitamin C] 500 MG tablet
500 mg PO NOON
DAVID-e 200 MG tablet
200 mg PO NOON
Eliquis 5 MG tablet
5 mg PO BID Qty: 60 3RF
furosemide 40 mg Tablet
40 mg PO DAILY Qty: 30 0RF
potassium chloride 10 mEq tablet extended release
10 meq PO DAILY Qty: 30 0RF
coenzyme Q10 400 mg Capsule
400 mg PO NOON
taurine 1,000 mg Capsule
1,000 mg PO DAILY
zinc
30 mg PO NOON
quercetin 500 mg Capsule
500 mg PO NOON
therapeutic multivitamin Tablet
1 tab PO NOON
Refresh Classic (PF) 1.4-0.6 % Dropperette
1 drp BOTH EYES BID
Saline Nasal 0.65 % Aerosol,[place]
1 spray INTRANASAL BID
cholecalciferol (vitamin D3) 125 mcg (5,000 unit) Tablet
125 mcg PO DAILY@1600
omeprazole magnesium [Prilosec OTC] 20 mg Tablet,Delayed Release (Dr/Ec)
20 mg PO DAILY
Discharge Orders:
Discharge Patient (As Directed); Ordered 09/25/24
Ordered By: Krzysztof Simon
Discharge Date and Time
Discharge Date/Time: 09/25/24 17:44
Print Language: GUAMANIAN
--- NOTE | 2024-09-25 15:29 | W.PN.PUL3 ---
Today's Communication / Plan
-
- Can be discharged from pulmonary standpoint
- Doxycycline 100 mg twice daily for 5 days
- Outpatient follow-up with pulmonary clinic
- Patient counseled to return to emergency room if she develops any respiratory symptoms
Assessment
-
Patient is 84-year-old female with known history of atrial fibrillation paroxysmal, heart failure with preserved ejection fraction and mitral regurgitation who presents to the hospital for 2 to 3 days history of shortness of breath. Patient denies
any cough but does report exertional dyspnea, orthopnea and sense of chest pressure as if a band is being tightened around her chest. In the emergency room she was noted to be mildly hypoxic was 85% on room air which improved with supplemental
oxygen. Does not report any sick contacts. No runny nose or sore throat reported. Patient was otherwise afebrile and has a normal white count. She was started on aztreonam and doxycycline and was admitted to the hospitalist service. Pulmonary
consultation was requested for further input.
#1. B/L Interstitial infiltrates, likely cardiogenic pulmonary edema. Known h/o HFpEF with mild to moderate MR.
- Patient is afebrile, normal WBC count and has negative Procalcitonin. Also no reported cough. BNP elevated at 815. CRP normal
- Bacterial pneumonia is unlikely. Off Aztreonam and Doxycycline
- Viral pneumonias, atypical infections. inflammatory pneumonitis and Pulmonary edema are main differentials
- Responded well to IV Lasix, follow-up chest x-ray two-view today shows improving interstitial infiltrates
- Influenza A, B screen negative. WBC count normal at 5.8K. COVID-19 screen negative. No cough or expectoration
#2. Dyspnea with orthopnea.
- No reported cough, expectoration or fever. reports episodic palpitations and chest pressure.
- Currently saturating well on room air, walking around in the hallway without any supplemental oxygen. No cough reported.
- Switch to oral Lasix
Considering patient is afebrile, does not have any cough, fever or expectoration. Dyspnea has improved. She is walking around on room air in the hallway. Can be discharged from pulmonary standpoint. Patient counseled that if she develops any
cough, shortness of breath, chest pain or fever or expectoration she should return back to emergency room. Will arrange outpatient follow-up with pulmonary clinic in coming weeks. Patient counseled to monitor salt intake and resume follow-up with
cardiology service for further titration of diuretics. Will treat with doxycycline for 5 days to empirically cover for any atypical infection she might have.
Other medical diagnoses:
- Paroxysmal atrial fibrillation status post ablation in 2022. Reports episodic palpitations
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
- Known history of mild to moderate mitral regurgitation
- Ascending aortic root dilation
- History of breast cancer s/p mastectomy, reconstruction chemotherapy and radiation
- History of GERD
- History of nonsustained ventricular tachycardia
Total time spent on this consultation/encounter __42__ minutes which includes review of history, physical exam, medications, laboratory data, personal review of imaging, extensive review of outpatient records, discussion with care team and
respiratory therapy.
Data:
CT-PE 09/2024: . No evidence of pulmonary embolism or thoracic aortic dissection.
2. Extensive groundglass opacity is seen bilaterally, right greater than left. Pattern is most suggestive of pneumonia, atypical pulmonary edema is a less likely differential consideration.
3. Tiny bilateral pleural effusions.
4. Peripherally calcified 1.4 cm right thyroid nodule.
CXR 09/2024: New findings suggesting moderate mid right lung pneumonia.Clinical and laboratory correlation recommended. A mass is less likely. Repeat examination in 2 weeks following treatment is recommended.
Stress test 11/2022: Fixed defect noted consistent with infarction.
ECHO 08/2024: Normal left ventricular size and systolic function. No regional wall motion
abnormalities are seen. LV ejection fraction is 50-55% by visual assessment.
Mild concentric left ventricular hypertrophy. Stage I diastolic dysfunction
suggestive of abnormal relaxation.
Normal right ventricular size and function.
Mild to moderate mitral regurgitation.
Thickened trileaflet aortic valve with normal leaflet excursion. Mild aortic
regurgitation. Pressure halftime across the aortic valve is 487 ms.
Mild tricuspid regurgitation. Estimated pulmonary artery pressure of 25 mmHg
assuming a right atrial pressure of 3 mmHg.
Mildly dilated ascending aorta. Ascending aorta measures 4.1 cm.
Compared to the previous echo 09/09/23, there is little significant change.
[facility] 05/2019: 1: Systemic hypertension
2: Normal left ventricular function with EF 59%
3. Mild to moderate mitral regurgitation
4. No significant CAD
Subjective Data
-
Date of Service:
Date of Service: September 25, 2024
Subjective:
No further symptoms, walking around in the hallway on room air.
Review of Systems
Genitourinary: Other (All 14 systems reviewed and negative except as stated above in the history of present illness.)
Objective Data
Data Reviewed
Vital Signs / I&O / Oxygen:
Vital Signs
Temp Pulse Resp BP Pulse Ox
97.7 F 79 16 123/81 95
09/25/24 11:11 09/25/24 11:11 09/25/24 11:11 09/25/24 11:11 09/25/24 11:11
Intake and Output
09/24/24 09/25/24 09/26/24
06:59 06:59 06:59
Intake Total 720 / 720
Balance 720 / 720
SaO2 95
Nasal Cannula flow liters per 96
minute
Physical Exam
General: Comfortable
HEENT: Normocephalic
Cardiovascular: S1-S2
Respiratory: Clear and Non-Labored Respirations
GI: Soft and Non Distended
Neurology: Awake and Alert
Skin: Warm
Labs/Micro/Reports
Lab Data
09/25/24 04:53
09/25/24 04:53
Microbiology
09/24/24 03:41 Nasal Swab Influenza Types A & B (JAGJIT) - Final
Negative for Influenza A & B, NAAT
Negative results must be combined with clinical observations
and patient history.
Nucleic Acid Amplification test (NAAT)performed on the
[employer] platform.
[2024-09-25 15:34] VITALS: BP 134/77
[2024-09-25] MEDS: VIBRAMYCIN 100 MG PO (15:39)
== END 2024-09-25 17:44 | disposition home or self-care (01) | DRG 291 ==
LOC: 3 WEST ACU 06:35
PROVIDERS: ADMITTING PHYSICIAN Internal Medicine; ATTENDING PHYSICIAN Hospitalist; CONSULT PHYSICIAN Internal Medicine; EMERGENCY PHYSICIAN Emergency Medicine; FAMILY PHYSICIAN Internal Medicine Geriatric Medicine
DX: I11.0 Hypertensive heart disease with heart failure (principal); I50.33 Acute on chronic diastolic (congestive) heart failure; J12.9 Viral pneumonia, unspecified; I25.10 Atherosclerotic heart disease of native coronary artery without angina pectoris; I48.0 Paroxysmal atrial fibrillation; Z90.13 Acquired absence of bilateral breasts and nipples; Z85.3 Personal history of malignant neoplasm of breast; E78.5 Hyperlipidemia, unspecified; R09.02 Hypoxemia; I45.10 Unspecified right bundle-branch block; Z88.0 Allergy status to penicillin; Z88.1 Allergy status to other antibiotic agents; Z88.2 Allergy status to sulfonamides; Z79.01 Long term (current) use of anticoagulants; K21.9 Gastro-esophageal reflux disease without esophagitis; J98.4 Other disorders of lung; Z79.899 Other long term (current) drug therapy; Z92.3 Personal history of irradiation
CPT/HCPCS: 71046; 71275; 80048; 80053; 83735; 83880; 84145; 84484; 85025; 85652; 86140; 87502; 87811; 93005; 94760; 97162; 99285; Q9967

== ENCOUNTER → 2024-10-03 11:13 | Outpatient (REF) | payer MEDICARE, BC, SELFPAY ==
[2024-10-03 11:48] LABS: % Basophils 0.2 % (0-2); % Eosinophils 1.4 % (0-6); % Immature Granulocytes 0.6 % (0-0.5); % Lymphocytes 19.8 % (20.5-51.1); % Monocytes 10.9 % (1.7-9.3); % Neutrophils 67.1 % (42.2-75.2); Absolute Eosinophils 0.1 10^3/uL (0-0.7); Absolute Monocytes 0.6 10^3/uL (0.1-0.6); Absolute Neutrophils 3.5 10^3/uL (1.4-6.5); Hematocrit 46.3 % (37.0-47.0); Hemoglobin 15.1 g/dL (12.0-16.0); Mean Corp Hgb Conc. 32.6 g/dL (33.0-37.0); Mean Corpuscular Hgb 26.8 pg (27.0-31.0); Mean Corpuscular Volume 82.2 fL (81.0-99.0); Mean Platelet Volume 9.1 fL (7.4-10.4); Platelet Count 221 10^3/uL (130-400); Red Blood Cell Count 5.63 10^6/uL (4.20-5.40); Red Cell Dist. Width 14.5 % (11.5-14.5); White Blood Cell Count 5.1 10^3/uL (4.8-10.8)
[2024-10-03 13:01] LABS: Blood Urea Nitrogen 16 mg/dl (7-17); Calcium 9.4 mg/dl (8.4-10.2); Carbon Dioxide 28 mmol/L (22-30); Chloride 106 mmol/L (98-107); Glucose 82 mg/dl (70-99); Potassium 4.7 mmol/L (3.5-5.1); Sodium 138 mmol/L (135-145); eGFR > 60.00
[2024-10-03 13:10] LABS: NT-proBNP 899 pg/ml
== END ==
LOC: OIDL 11:13
PROVIDERS: ATTENDING PHYSICIAN Internal Medicine Geriatric Medicine
DX: I48.0 Paroxysmal atrial fibrillation (principal); C50.912 Malignant neoplasm of unspecified site of left female breast; E78.5 Hyperlipidemia, unspecified; I10 Essential (primary) hypertension; I34.0 Nonrheumatic mitral (valve) insufficiency; K21.9 Gastro-esophageal reflux disease without esophagitis; I50.30 Unspecified diastolic (congestive) heart failure; I50.31 Acute diastolic (congestive) heart failure; E55.9 Vitamin D deficiency, unspecified; M85.89 Other specified disorders of bone density and structure, multiple sites; Z13.31 Encounter for screening for depression; E86.1 Hypovolemia
CPT/HCPCS: 80048; 83880; 85025

== ENCOUNTER → 2024-10-12 14:14 | Outpatient (REF) | payer MEDICARE, BC, SELFPAY | LOC: RAD 14:14 | PROVIDERS: ATTENDING PHYSICIAN Internal Medicine Geriatric Medicine | DX: I48.0 Paroxysmal atrial fibrillation (principal); E78.5 Hyperlipidemia, unspecified; I10 Essential (primary) hypertension; I34.0 Nonrheumatic mitral (valve) insufficiency; K21.9 Gastro-esophageal reflux disease without esophagitis; I50.30 Unspecified diastolic (congestive) heart failure; I50.31 Acute diastolic (congestive) heart failure; E55.9 Vitamin D deficiency, unspecified; M85.89 Other specified disorders of bone density and structure, multiple sites; Z13.31 Encounter for screening for depression; E86.1 Hypovolemia | CPT/HCPCS: 71046 ==

== ENCOUNTER 2024-10-19 10:21 | Emergency (ER) | payer MEDICARE, BC, SELFPAY ==
[2024-10-19 10:24] VITALS: BP 148/78
[2024-10-19 11:01] VITALS: BMI 32.5
[2024-10-19 11:07] VITALS: BP 125/72
--- NOTE | 2024-10-19 11:12 | ED.GENMED ---
History of Present Illness
General
Chief Complaint: Abdominal Pain
Source: patient
Exam Limitations: none
Time Seen by Provider: 10/19/24 10:50
Nursing documentation reviewed up to this point in time: agreed with
History of Present Illness
History of Present Illness:
84-year-old female with history of migraines, A-fib on Eliquis, CHF, HTN, HLD, GERD, upper GI bleed, frequent UTI, remote history of breast cancer with bilateral mastectomies, anxiety/depression presents for pain across her lower abdomen since last
night after dinner of a hamburger with lettuce and tomato. She does say earlier in the day after having 2 peanut chews her stomach felt a little uneasy. She has had no nausea or vomiting, no diarrhea or constipation. She had a good bowel movement
last night. She denies fever or chills. She states last night pain was 10/10 at 1 point, she did sleep well during the night and then this morning and now her pain is 7/10.
Past History
Past History
ED Past Medical History: Arrthythmia, Cancer (Breast), GERD, HTN and Other (Breast cancer status post radiation therapy status post bilateral mastectomies, previous lower GI bleed, Lyme's disease, bundle branch block, neurocardiogenic syncope)
ED Past Surgical History: Other (Double mastectomy with reconstruction as well as abdominoplasty)
Social History
Tobacco: Non-smoker
Alcohol: None
Drug: None
Personal:
Living: alone
Family History
Family History: Other (COPD, coronary disease, heart failure)
Phy Exam
Physical Exam
Physical Exam:
GENERAL: No acute distress. A&Ox3.
CONSTITUTIONAL: Afebrile.
EYES: clear, conjunctivae normal
ENMT: moist mucus membranes, Pharynx nl
RESPIRATORY: Regular respirations, nonlabored, lungs clear.
CARDIOVASCULAR: Regular rate and rhythm, no murmurs, no rubs.
GI: Soft, tender mid to left abdomen, normal BS
MUSCULOSKELETAL: Moves with ease. Well perfused.
SKIN: Warm, dry, pink
PSYCH: Normal mood and affect. Well kept, interactive and appropriate
NEUROLOGIC: Awake, alert and oriented. No focal neurological deficits
Course
Orders/Labs/Results
Orders:
Orders
10/19/24 11:23
CT Abd/Pel (IV only)-DH only Urgent
Comment:
Reason For Exam: Mid to left abdominal pain
10/19/24 11:31
Complete Blood Count/With Diff Urgent
Comprehensive Metabolic Panel Urgent
Lipase Urgent
10/19/24 13:16
Urinalysis Reflex To Culture Urgent
Date Specimen was Collected: 10/19/24
Time Specimen was Collected: 13:15
Urine Microscopic Reflex Cult Urgent
Urine Culture Urgent
TOM Source: U
Specimen Description:
Date Specimen was Collected: 10/19/24
Time Specimen was Collected: 13:15
Abnormal Lab Results
10/19/24 10/19/24
11:31 13:16
MCHC 32.9 L g/dL
(33.0-37.0)
Absolute Neuts (auto) 7.3 H 10^3/uL
(1.4-6.5)
Absolute Lymphs (auto) 0.9 L 10^3/uL
(1.2-3.4)
Absolute Monos (auto) 0.7 H 10^3/uL
(0.1-0.6)
Neutrophils % 82.1 H %
(42.2-75.2)
Lymphocytes % 9.5 L %
(20.5-51.1)
Sodium 131 L mmol/L
(135-145)
Leukocyte Esterase Rfl 2+ A
(Negative)
Urine Bacteria (Reflex) Few A
(Negative)
10/19/24 11:31
10/19/24 11:31
Vital Signs
Initial and Last Documented VS:
Initial Vital Signs
Temp Pulse Resp BP Pulse Ox
98.8 F 92 18 148/78 97
10/19/24 10:24 10/19/24 10:24 10/19/24 10:24 10/19/24 10:24 10/19/24 10:24
Last Documented Vital Signs
Temp Pulse Resp BP Pulse Ox
98.8 F 95 28 125/72 97
10/19/24 10:24 10/19/24 14:15 10/19/24 14:15 10/19/24 11:07 10/19/24 11:14
MDM/Problems Addressed
Differential Diagnosis Includes:
Diverticulitis, colitis, UTI, viral illness
MDM/Problems Addressed:
84-year-old female with history of migraines, A-fib on Eliquis, CHF, HTN, HLD, GERD, upper GI bleed, frequent UTI, remote history of breast cancer with bilateral mastectomies, anxiety/depression presents for pain across her lower abdomen since last
night after dinner of a hamburger with lettuce and tomato. She does say earlier in the day after having 2 peanut chews her stomach felt a little uneasy. She has had no nausea or vomiting, no diarrhea or constipation. She had a good bowel movement
last night. She denies fever or chills. She states last night pain was 10/10 at 1 point, she did sleep well during the night and then this morning and now her pain is 7/10.
Afebrile, NAD
1:30 PM:
CBC with no clinically significant abnormality
CMP unremarkable
Lipase normal
CT abdomen pelvis with IV contrast, radiology report read: IMPRESSION:
Sigmoid diverticulosis. Although limited without oral contrast, there is some thickening of the wall of the proximal to mid sigmoid colon with some accompanying stranding suspicious for COLITIS or DIVERTICULITIS.
Mild hepatomegaly.
Unremarkable appendix.
Small fat only containing umbilical hernia.
U/A neg
Pt comfortable. Rx for Doxycycline sent to her pharmacy.
Ambulated out with normal gait.
Referred to GI for f/u
*Pulse Oximetry
SaO2: 97
Oxygen Mode of Delivery: Room air
Patient hypoxic: not evaluated
*Critical Care Note
Total Time (30-74mins, 75-104mins- exclusive of procedures): Not Applicable
ED Attending Note
-
Portions of this chart may have been created with voice recognition software.� Occasional wrong word or��sound alike� substitutions may have occurred due to the inherent limitations of voice recognition software.
Discharge Plan
Departure
Patient Disposition: Home (Routine Discharge)
Date of Disposition: 10/19/24
Time of Disposition: 14:24
Patient with high blood pressure during this ER visit?: No
Condition: Good
Discharge Problem:
Diverticulitis
Instructions: Clear Liquid Diet, Diverticulitis (DC)
Prescriptions:
New
doxycycline hyclate 100 mg tablet
100 mg PO BID Qty: 20 0RF
No Action
red yeast rice 600 MG capsule
1 dose PO DAILY@1600
ascorbic acid (vitamin C) [Vitamin C] 500 MG tablet
500 mg PO NOON
DAVID-e 200 MG tablet
200 mg PO NOON
Eliquis 5 MG tablet
5 mg PO BID Qty: 60 3RF
furosemide 40 mg Tablet
40 mg PO DAILY Qty: 30 0RF
potassium chloride 10 mEq tablet extended release
10 meq PO DAILY Qty: 30 0RF
coenzyme Q10 400 mg Capsule
400 mg PO NOON
taurine 1,000 mg Capsule
1,000 mg PO DAILY
zinc
30 mg PO NOON
quercetin 500 mg Capsule
500 mg PO NOON
therapeutic multivitamin Tablet
1 tab PO NOON
Refresh Classic (PF) 1.4-0.6 % Dropperette
1 drp BOTH EYES BID
Saline Nasal 0.65 % Aerosol,[place]
1 spray INTRANASAL BID
cholecalciferol (vitamin D3) 125 mcg (5,000 unit) Tablet
125 mcg PO DAILY@1600
omeprazole magnesium [Prilosec OTC] 20 mg Tablet,Delayed Release (Dr/Ec)
20 mg PO DAILY
guaifenesin 600 mg Tablet Extended Release 12hr
600 mg PO Q12 Qty: 14 0RF
doxycycline hyclate 100 mg tablet
100 mg PO BID Qty: 9 0RF
Rx Instructions:
First dose September 26, 2024 morning
Referrals:
Dayami Mejia MD [Active, Gastroenterology] - Call in 1-3 days for appt
Aime Bustillo MD [Family Provider, Internal Medicine] - As needed
Activity Restrictions/Additional Instructions:
As we discussed, you have mild diverticulitis. I sent a prescription to your pharmacy for doxycycline antibiotic to take twice a day for 10 days
Take a probiotic or eat yogurt daily while you are on the antibiotic to avoid diarrhea
Clear liquid diet for the next 24 hours and gradually increase the diet as tolerated
Call and make an appointment with a GI doctor for follow-up.
Interventions
Interventions:
*Risk Screen - Suicide Last Done: 10/19/24 10:24
*General Assessment Last Done: 10/19/24 10:24
*Neglect/Abuse Screening Last Done: 10/19/24 10:24
*ED- Fall Risk Assessment Last Done: 10/19/24 11:01
*ED COVID-19 Vaccine History Last Done: 10/19/24 11:01
*Nursing Disposition Last Done: 10/19/24 14:45
KV-[id number]-[id number] Assessment Last Done: 10/19/24 11:01
Discharge Date and Time
Discharge Date/Time: 10/19/24 14:46
Print Language: TUNISIAN
[2024-10-19 11:50] LABS: Hematocrit 42.6 % (37.0-47.0); Hemoglobin 14.0 g/dL (12.0-16.0); Mean Corp Hgb Conc. 32.9 g/dL (33.0-37.0); Mean Corpuscular Volume 82.2 fL (81.0-99.0); Nucleated Red Blood Cells % 0 %; Platelet Count 196 10^3/uL (130-400); Red Cell Dist. Width 14.3 % (11.5-14.5)
[2024-10-19 12:06] LABS: ALT (SGPT) 16 U/L (0-35); AST (SGOT) 21 U/L (14-36); Albumin 3.9 g/dl (3.5-5.0); Alkaline Phosphatase 81 U/L (38-126); Blood Urea Nitrogen 16 mg/dl (7-17); Calcium 8.9 mg/dl (8.4-10.2); Carbon Dioxide 26 mmol/L (22-30); Chloride 103 mmol/L (98-107); Estimated Creatinine Clearance 68 ml/min; Glucose 97 mg/dl (70-99); Lipase 70 U/L (23-300); Potassium 4.4 mmol/L (3.5-5.1); Sodium 131 mmol/L (135-145); Total Protein 6.3 g/dl (6.3-8.2); eGFR > 60.00
[2024-10-19 13:53] LABS: Urine Character Clear (Clear)
[2024-10-19 14:45] LABS: Urine Red Blood Cell 0-2 /HPF (0-2); Urine Squamous Cell 0-2 /LPF (Few); Urine Urothelial Cell 0-2 /LPF (FEW)
== END 2024-10-19 14:46 | disposition home or self-care (01) ==
LOC: EMR 10:21
PROVIDERS: Registered Nurse; EMERGENCY PHYSICIAN Emergency Medicine; FAMILY PHYSICIAN Internal Medicine Geriatric Medicine
DX: K57.92 Diverticulitis of intestine, part unspecified, without perforation or abscess without bleeding (principal); K42.9 Umbilical hernia without obstruction or gangrene; R16.0 Hepatomegaly, not elsewhere classified; I48.91 Unspecified atrial fibrillation; I11.0 Hypertensive heart disease with heart failure; I50.9 Heart failure, unspecified; E78.5 Hyperlipidemia, unspecified; K21.9 Gastro-esophageal reflux disease without esophagitis; F41.9 Anxiety disorder, unspecified; F32.A Depression, unspecified; G43.909 Migraine, unspecified, not intractable, without status migrainosus; M19.90 Unspecified osteoarthritis, unspecified site; Z85.3 Personal history of malignant neoplasm of breast; Z85.828 Personal history of other malignant neoplasm of skin; Z92.3 Personal history of irradiation; Z87.440 Personal history of urinary (tract) infections; Z79.01 Long term (current) use of anticoagulants; Z90.13 Acquired absence of bilateral breasts and nipples; Z88.1 Allergy status to other antibiotic agents; Z88.3 Allergy status to other anti-infective agents; Z88.0 Allergy status to penicillin; Z88.2 Allergy status to sulfonamides; Z88.8 Allergy status to other drugs, medicaments and biological substances; Z91.048 Other nonmedicinal substance allergy status
CPT/HCPCS: 99284; 74177; 80053; 81003; 81015; 83690; 85025; 87086; Q9967

== ENCOUNTER 2025-01-15 06:32 | Emergency (ER) | payer MEDICARE, BC, SELFPAY ==
[2025-01-15 06:34] VITALS: BP 148/86
[2025-01-15 06:56] LABS: Hematocrit 45.5 % (37.0-47.0); Hemoglobin 14.8 g/dL (12.0-16.0); Mean Corp Hgb Conc. 32.5 g/dL (33.0-37.0); Mean Corpuscular Volume 82.0 fL (81.0-99.0); Nucleated Red Blood Cells % 0 %; Platelet Count 215 10^3/uL (130-400); Red Cell Dist. Width 14.6 % (11.5-14.5)
[2025-01-15 07:18] LABS: ALT (SGPT) 22 U/L (0-35); AST (SGOT) 32 U/L (14-36); Albumin 4.2 g/dl (3.5-5.0); Alkaline Phosphatase 79 U/L (38-126); Blood Urea Nitrogen 15 mg/dl (7-17); Calcium 9.5 mg/dl (8.4-10.2); Carbon Dioxide 27 mmol/L (22-30); Chloride 105 mmol/L (98-107); Glucose 91 mg/dl (70-99); Lipase 183 U/L (23-300); Potassium 4.2 mmol/L (3.5-5.1); Sodium 136 mmol/L (135-145); Total Protein 7.0 g/dl (6.3-8.2); eGFR > 60.00
--- NOTE | 2025-01-15 08:48 | ED.GENMED ---
History of Present Illness
General
Chief Complaint: Abdominal Pain
Source: patient
Exam Limitations: none
Time Seen by Provider: 01/15/25 08:38
History of Present Illness
History of Present Illness:
84yoF with a history of atrial fibrillation on Eliquis, CHF, hypertension, and hyperlipidemia presenting for evaluation of abdominal pain. Symptoms initially began 2 days ago while she was eating lunch. She states she broke out into a cold sweat
and started to experience terrible pain throughout her lower abdomen. The pain lasted for several hours before subsiding. She was feeling okay yesterday and was eating a bland diet with broth and noodles. She woke up again overnight with
recurrent pain. Her pain has improved but she continues to have a soreness in her lower abdomen. She typically has a bowel movement every day but the stool has been rope-like the past 2 days. She denies any associated fevers, chills, chest pain,
shortness of breath, nausea, vomiting, diarrhea, hematochezia, dysuria. She has been seen in the ED previously for abdominal pain, last visit was October 2024 when she was diagnosed with diverticulitis. Only prior abdominal surgery was a trans flap
for breast reconstruction.
Past History
Past History
ED Past Medical History: Arrthythmia, Cancer (Breast), GERD, HTN and Other (Breast cancer status post radiation therapy status post bilateral mastectomies, previous lower GI bleed, Lyme's disease, bundle branch block, neurocardiogenic syncope)
ED Past Surgical History: Other (Double mastectomy with reconstruction as well as abdominoplasty)
Social History
Tobacco: Non-smoker
Alcohol: None
Drug: None
Personal:
Living: alone
Family History
Family History: Other (COPD, coronary disease, heart failure)
Phy Exam
General Physical Exam
General Presentation: well appearing and no apparent distress
General Skin: warm and dry
General Habitus: normal
General Mental: alert
ENT Exam
ENT Exam: normocephalic
Cardiovascular Exam
Cardiovascular Exam: regular rate/rhythm, no edema and no murmur
Pulmonary Exam
Pulmonary Exam: lungs clear, no respiratory distress, no rales, no crackles, no rhonchi and no wheezing
Gastrointestinal Exam
Gastrointestinal Exam: soft, non distended and other (+Tenderness in suprapubic and LLQ regions. Abdomen soft, non-distended. No rebound or guarding.)
Neurological Exam
Neurological Exam: alert
Jayy Coma Scale
Eye Opening: Spontaneous
Verbal Response: Oriented
Motor Response: Obeys Commands
GCS Total Score: 15
Skin Exam
Skin Exam: normal color and warm/dry
Psychiatric Exam
Psychiatric Exam: normal mood/affect
Course
Orders/Labs/Results
Orders:
Orders
01/15/25 06:44
Complete Blood Count/With Diff Urgent
Comprehensive Metabolic Panel Urgent
Lipase Urgent
01/15/25 08:48
Electrocardiogram (*1) Urgent
Reason for Study: Abdominal Pain
CT Abd/pelvis W Iv Cont Urgent
Comment:
Reason For Exam: lower abd pain
EKG- Treatment ONCE
01/15/25 09:00
Lactic Acid Urgent
Troponin I Urgent
01/15/25 09:06
Urinalysis Reflex To Culture Urgent
Date Specimen was Collected: 01/15/25
Time Specimen was Collected: 09:00
Abnormal Lab Results
01/15/25
06:44
RBC 5.55 H 10^6/uL
(4.20-5.40)
MCH 26.7 L pg
(27.0-31.0)
MCHC 32.5 L g/dL
(33.0-37.0)
RDW 14.6 H %
(11.5-14.5)
Monocytes % 10.6 H %
(1.7-9.3)
01/15/25 06:44
01/15/25 06:44
Vital Signs
Initial and Last Documented VS:
Initial Vital Signs
Temp Pulse Resp BP Pulse Ox
97.6 F 79 16 148/86 94
01/15/25 06:34 01/15/25 06:34 01/15/25 06:34 01/15/25 06:34 01/15/25 06:34
Last Documented Vital Signs
Temp Pulse Resp BP Pulse Ox
97.6 F 79 16 148/86 94
01/15/25 06:34 01/15/25 06:34 01/15/25 06:34 01/15/25 06:34 01/15/25 08:51
MDM/Problems Addressed
Differential Diagnosis Includes:
84yoF here with lower abd pain. Initially began 2 days ago and subsided. Recurred last night. Stool has been smaller. Otherwise asymptomatic. VSS. She is well appearing in no distress. No signs of peritonitis on abdominal exam. Differential
diagnosis includes but is not limited to: Diverticulitis, colitis, UTI, constipation, appendicitis, nonspecific abdominal pain
Initial ED plan: Workup initiated in triage. Labs unremarkable including normal white count, renal function, LFTs, and lipase. Will check lactate, troponin/EKG, UA, and CT abdomen.
*Pulse Oximetry
SaO2: 94
Oxygen Mode of Delivery: Room air
Patient hypoxic: no
*EKG
Interpreted by ED Provider?: Yes
EKG Intrepretation Date: 01/15/25
Heart Rate: 75
Rate: normal
Rhythm: sinus
[place]: left axis deviation
Interval: normal interval
QRS Pattern: right bundle branch block
Ischemia: no ischemia
*Critical Care Note
Total Time (30-74mins, 75-104mins- exclusive of procedures): Not Applicable
Update Note
Update Note:
Lactate normal. EKG unchanged from prior without ischemic changes. Troponin undetectable. UA bland without signs of infection or hematuria. CT abdomen is negative for acute findings. Patient is feeling significantly improved on reevaluation and
denies any current pain. Unclear etiology of symptoms. Patient typically has 2-3 bowel movements daily but only had 1 small BM yesterday. ?possible constipation. Patient advised to use Miralax PRN and f/u closely with her PCP. ED return
precautions reviewed. Patient in agreement with plan and was discharged in stable condition.
ED Attending Note
-
Portions of this chart may have been created with voice recognition software.� Occasional wrong word or��sound alike� substitutions may have occurred due to the inherent limitations of voice recognition software.
Discharge Plan
Departure
Patient Disposition: Home (Routine Discharge)
Date of Disposition: 01/15/25
Time of Disposition: 11:25
Patient with high blood pressure during this ER visit?: Yes
Discharge Problem:
Abdominal pain
Instructions: Abdominal Pain
Prescriptions:
No Action
red yeast rice 600 MG capsule
1 dose PO DAILY@1600
ascorbic acid (vitamin C) [Vitamin C] 500 MG tablet
500 mg PO NOON
DAVID-e 200 MG tablet
200 mg PO NOON
Eliquis 5 MG tablet
5 mg PO BID Qty: 60 3RF
furosemide 40 mg Tablet
40 mg PO DAILY Qty: 30 0RF
potassium chloride 10 mEq tablet extended release
10 meq PO DAILY Qty: 30 0RF
coenzyme Q10 400 mg Capsule
400 mg PO NOON
taurine 1,000 mg Capsule
1,000 mg PO DAILY
zinc
30 mg PO NOON
quercetin 500 mg Capsule
500 mg PO NOON
therapeutic multivitamin Tablet
1 tab PO NOON
Refresh Classic (PF) 1.4-0.6 % Dropperette
1 drp BOTH EYES BID
Saline Nasal 0.65 % Aerosol,[place]
1 spray INTRANASAL BID
cholecalciferol (vitamin D3) 125 mcg (5,000 unit) Tablet
125 mcg PO DAILY@1600
omeprazole magnesium [Prilosec OTC] 20 mg Tablet,Delayed Release (Dr/Ec)
20 mg PO DAILY
guaifenesin 600 mg Tablet Extended Release 12hr
600 mg PO Q12 Qty: 14 0RF
doxycycline hyclate 100 mg tablet
100 mg PO BID Qty: 9 0RF
Rx Instructions:
First dose September 26, 2024 morning
doxycycline hyclate 100 mg tablet
100 mg PO BID Qty: 20 0RF
Referrals:
Aime Bustillo MD [Family Provider, Internal Medicine]
Activity Restrictions/Additional Instructions:
Take MiraLAX daily as needed for constipation.
Please follow-up with your family doctor within the next week. Return to the ER with any new or worsening symptoms including fevers or severe pain.
Interventions
Interventions:
*Risk Screen - Suicide Last Done: 01/15/25 06:34
*General Assessment Last Done: 01/15/25 06:34
*Neglect/Abuse Screening Last Done: 01/15/25 06:34
*ED- Fall Risk Assessment Last Done: 01/15/25 11:48
*ED COVID-19 Vaccine History Last Done: 01/15/25 11:48
*Nursing Disposition Last Done: 01/15/25 11:48
UQ-[id number] Assessment Last Done: 01/15/25 11:48
Discharge Date and Time
Discharge Date/Time: 01/15/25 11:49
Print Language: KITTITIAN
[2025-01-15 09:39] LABS: Troponin I < 0.012 ng/ml
[2025-01-15 09:42] LABS: Urine Character Clear (Clear)
== END 2025-01-15 11:49 | disposition home or self-care (01) ==
LOC: EMR 06:32
PROVIDERS: Physician Assistant; EMERGENCY PHYSICIAN Emergency Medicine; FAMILY PHYSICIAN Internal Medicine Geriatric Medicine
DX: R10.9 Unspecified abdominal pain (principal); I48.91 Unspecified atrial fibrillation; I11.0 Hypertensive heart disease with heart failure; I50.9 Heart failure, unspecified; E78.00 Pure hypercholesterolemia, unspecified; Z79.01 Long term (current) use of anticoagulants; Z82.49 Family history of ischemic heart disease and other diseases of the circulatory system; Z82.5 Family history of asthma and other chronic lower respiratory diseases; Z85.3 Personal history of malignant neoplasm of breast; Z90.13 Acquired absence of bilateral breasts and nipples; Z92.3 Personal history of irradiation
CPT/HCPCS: 99284; 74177; 80053; 81003; 83605; 83690; 84484; 85025; 93005; Q9967

== ENCOUNTER → 2025-03-30 11:09 | Outpatient (REF) | payer MEDICARE, BC, SELFPAY ==
[2025-03-30 17:44] LABS: Urine Character Cloudy (Clear)
[2025-03-30 17:53] LABS: Urine Red Blood Cell >100 /HPF (0-2); Urine Squamous Cell 0-2 /LPF (Few)
[2025-03-30 17:54] LABS: Urine White Cell 30-40 /HPF (0-5)
== END ==
LOC: CLAB 11:09
PROVIDERS: ATTENDING PHYSICIAN Nurse Practitioner Family
DX: R30.0 Dysuria (principal); R35.0 Frequency of micturition
CPT/HCPCS: 81003; 81015; 87077; 87086; 87186

== ENCOUNTER → 2025-03-31 08:46 | Outpatient (REF) | payer MEDICARE, BC, SELFPAY ==
[2025-03-31 10:48] LABS: Hematocrit 44.0 % (37.0-47.0); Hemoglobin 14.2 g/dL (12.0-16.0); Mean Corp Hgb Conc. 32.3 g/dL (33.0-37.0); Mean Corpuscular Volume 81.9 fL (81.0-99.0); Nucleated Red Blood Cells % 0 %; Platelet Count 223 10^3/uL (130-400); Red Cell Dist. Width 14.6 % (11.5-14.5)
[2025-03-31 11:12] LABS: ALT (SGPT) 24 U/L (0-35); AST (SGOT) 31 U/L (14-36); Albumin 4.1 g/dl (3.5-5.0); Alkaline Phosphatase 107 U/L (38-126); Blood Urea Nitrogen 20 mg/dl (7-17); Calcium 9.2 mg/dl (8.4-10.2); Carbon Dioxide 25 mmol/L (22-30); Chloride 99 mmol/L (98-107); Glucose 92 mg/dl (70-99); Potassium 3.9 mmol/L (3.5-5.1); Sodium 133 mmol/L (135-145); Total Protein 6.8 g/dl (6.3-8.2); eGFR > 60.00
== END ==
LOC: RAD 08:46
PROVIDERS: ATTENDING PHYSICIAN Internal Medicine Endocrinology, Diabetes & Metabolism; FAMILY PHYSICIAN Nurse Practitioner Family; REFERRING PHYSICIAN Internal Medicine Geriatric Medicine
DX: E04.2 Nontoxic multinodular goiter (principal); R30.0 Dysuria; R35.0 Frequency of micturition; R42 Dizziness and giddiness
CPT/HCPCS: 36415; 76536; 80053; 84443; 85025

== ENCOUNTER → 2025-04-11 08:53 | Outpatient (REF) | payer MEDICARE, BC, SELFPAY ==
[2025-04-11 10:46] LABS: Blood Urea Nitrogen 18 mg/dl (7-17); Calcium 9.3 mg/dl (8.4-10.2); Carbon Dioxide 27 mmol/L (22-30); Chloride 103 mmol/L (98-107); Glucose 82 mg/dl (70-99); Potassium 4.3 mmol/L (3.5-5.1); Sodium 135 mmol/L (135-145); eGFR > 60.00
== END ==
LOC: RCS 08:53
PROVIDERS: ATTENDING PHYSICIAN Nuclear Medicine Nuclear Cardiology; FAMILY PHYSICIAN Internal Medicine Geriatric Medicine
DX: I48.0 Paroxysmal atrial fibrillation (principal); I50.30 Unspecified diastolic (congestive) heart failure; R55 Syncope and collapse
CPT/HCPCS: 36415; 80048; 93306

== ENCOUNTER 2025-04-14 10:57 | Emergency (ER) | payer MEDICARE, BC, SELFPAY ==
[2025-04-14 11:13] VITALS: BP 146/94
[2025-04-14 11:55] LABS: Hematocrit 46.5 % (37.0-47.0); Hemoglobin 15.1 g/dL (12.0-16.0); Mean Corp Hgb Conc. 32.5 g/dL (33.0-37.0); Mean Corpuscular Volume 83.5 fL (81.0-99.0); Nucleated Red Blood Cells % 0 %; Platelet Count 225 10^3/uL (130-400); Red Cell Dist. Width 14.6 % (11.5-14.5)
[2025-04-14 12:11] LABS: COVID-19 Antigen Negative (Negative)
[2025-04-14 12:31] LABS: ALT (SGPT) 22 U/L (0-35); AST (SGOT) 27 U/L (14-36); Albumin 4.1 g/dl (3.5-5.0); Alkaline Phosphatase 103 U/L (38-126); Blood Urea Nitrogen 22 mg/dl (7-17); Calcium 9.2 mg/dl (8.4-10.2); Carbon Dioxide 27 mmol/L (22-30); Chloride 102 mmol/L (98-107); Glucose 89 mg/dl (70-99); Potassium 4.1 mmol/L (3.5-5.1); Sodium 134 mmol/L (135-145); Total Protein 6.8 g/dl (6.3-8.2); eGFR > 60.00
[2025-04-14 12:47] VITALS: BP 139/102
--- NOTE | 2025-04-14 13:03 | ED.GENMED ---
History of Present Illness
General
Chief Complaint: Breathing Problem
Time Seen by Provider: 04/14/25 12:50
History of Present Illness
History of Present Illness:
Present is a 5-year-old female with past medical history of A-fib on Eliquis who presents with several weeks of right sided rib pain and shortness of breath. Reports that she was seen by her family doctor and told that rib pain was associated with
'poor sleep'. She also followed up with her active directory architect regarding her shortness of breath and is scheduled for valve repair next week. Reports that shortness of breath is baseline. Will prompted her to seek evaluation today was her right sided
chest wall pain that was not improving.
Past History
Past History
ED Past Medical History: Arrthythmia, Cancer (Breast), GERD, HTN and Other (Breast cancer status post radiation therapy status post bilateral mastectomies, previous lower GI bleed, Lyme's disease, bundle branch block, neurocardiogenic syncope)
ED Past Surgical History: Other (Double mastectomy with reconstruction as well as abdominoplasty)
Social History
Tobacco: Non-smoker
Alcohol: None
Drug: None
Personal:
Living: alone
Family History
Family History: Other (COPD, coronary disease, heart failure)
Phy Exam
General Physical Exam
General Presentation: well appearing and no apparent distress
General Skin: warm and dry
General Habitus: normal
General Mental: alert
General Hydration: appears well hydrated
ENT Exam
ENT Exam: EOMI, pharynx normal, neck supple and normocephalic
Eye Exam
Eye Exam: PERRL, cornea clear and conjunctiva normal
Cardiovascular Exam
Cardiovascular Exam: regular rate/rhythm, no edema, no murmur and normal peripheral pulses
Pulmonary Exam
Pulmonary Exam: lungs clear, no respiratory distress, no rales, no crackles, no rhonchi, no stridor, no wheezing and no cough
Gastrointestinal Exam
Gastrointestinal Exam: normal bowel sounds, non tender, soft, no organomegaly, no pulsatile mass and non distended
Neurological Exam
Neurological Exam: alert, oriented x3, no motor deficits and speech normal
Musculoskeletal Exam
Musculoskeletal Exam: full ROM, no edema and other (Right chest wall pain to palpation)
Skin Exam
Skin Exam: normal color, warm/dry, no rash and no petechia
Psychiatric Exam
Psychiatric Exam: normal mood/affect
Scores
Heart Failure Risk
Heart Failure Risk Score: Not Applicable
Course
Orders/Labs/Results
Orders:
Orders
04/14/25 11:16
Electrocardiogram (*1) Urgent
Reason for Study: Shortness of Breath
EKG- Treatment ONCE
Chest [CR Chest - 2 Views ] Urgent
Comment:
Reason For Exam: sob
04/14/25 11:30
COVID-19 Antigen Urgent
Source: Nasal Swab
Complete Blood Count/With Diff Urgent
Comprehensive Metabolic Panel Urgent
INF RAPID [Influenza A+B Rapid Molecular] Urgent
TOM Source: Nasal Swab
Specimen Description:
04/14/25 13:18
Acetaminophen [Tylenol] 1,000 mg PO NOW STA
04/14/25 14:10
CT Chest W/o Iv Contrast Urgent
Comment:
Reason For Exam: right sided rib pain
Abnormal Lab Results
04/14/25
11:30
RBC 5.57 H 10^6/uL
(4.20-5.40)
MCHC 32.5 L g/dL
(33.0-37.0)
RDW 14.6 H %
(11.5-14.5)
Monocytes % 10.3 H %
(1.7-9.3)
Sodium 134 L mmol/L
(135-145)
BUN 22 H mg/dl
(7-17)
04/14/25 11:30
04/14/25 11:30
Vital Signs
Initial and Last Documented VS:
Initial Vital Signs
Temp Pulse Resp BP Pulse Ox
36.4 C 84 18 146/94 96
04/14/25 11:13 04/14/25 11:13 04/14/25 11:13 04/14/25 11:13 04/14/25 11:13
Last Documented Vital Signs
Temp Pulse Resp BP Pulse Ox
36.4 C 96 21 117/90 96
04/14/25 11:13 04/14/25 12:47 04/14/25 12:47 04/14/25 14:34 04/14/25 14:56
MDM/Problems Addressed
Differential Diagnosis Includes:
EKG obtained normal sinus rhythm with PACs. CBC and BMP unremarkable. Chest x-ray obtained and shows no obvious rib fractures or intrathoracic pathology on my review. Formal radiology read is still pending. Given patient is having substantial
pain over her ribs CT scan was ordered. However patient became dissatisfied with wait time for CAT scan and elected to leave the department prior to scan being completed. I did discuss with the patient that the cause of her pain is still unclear.
She is adamant that she would like to leave follow-up with her primary care doctor.
*Pulse Oximetry
SaO2: 96
Oxygen Mode of Delivery: Room air
Patient hypoxic: no
*Critical Care Note
Total Time (30-74mins, 75-104mins- exclusive of procedures): Not Applicable
ED Attending Note
-
Portions of this chart may have been created with voice recognition software.� Occasional wrong word or��sound alike� substitutions may have occurred due to the inherent limitations of voice recognition software.
Discharge Plan
Departure
Patient Disposition: Home (Routine Discharge)
Date of Disposition: 04/14/25
Time of Disposition: 15:32
Patient with high blood pressure during this ER visit?: No
Discharge Problem:
Pain in rib, Shortness of breath
Prescriptions:
No Action
red yeast rice 600 MG capsule
1 dose PO DAILY@1600
ascorbic acid (vitamin C) [Vitamin C] 500 MG tablet
500 mg PO NOON
DAVID-e 200 MG tablet
200 mg PO NOON
Eliquis 5 MG tablet
5 mg PO BID Qty: 60 3RF
furosemide 40 mg Tablet
40 mg PO DAILY Qty: 30 0RF
potassium chloride 10 mEq tablet extended release
10 meq PO DAILY Qty: 30 0RF
coenzyme Q10 400 mg Capsule
400 mg PO NOON
taurine 1,000 mg Capsule
1,000 mg PO DAILY
zinc
30 mg PO NOON
quercetin 500 mg Capsule
500 mg PO NOON
therapeutic multivitamin Tablet
1 tab PO NOON
Refresh Classic (PF) 1.4-0.6 % [place]pe[place]
1 drp BOTH EYES BID
Saline Nasal 0.65 % Aerosol,[place]
1 spray INTRANASAL BID
cholecalciferol (vitamin D3) 125 mcg (5,000 unit) Tablet
125 mcg PO DAILY@1600
omeprazole magnesium [Prilosec OTC] 20 mg Tablet,Delayed Release (Dr/Ec)
20 mg PO DAILY
guaifenesin 600 mg Tablet Extended Release 12hr
600 mg PO Q12 Qty: 14 0RF
doxycycline hyclate 100 mg tablet
100 mg PO BID Qty: 9 0RF
Rx Instructions:
First dose September 26, 2024 morning
doxycycline hyclate 100 mg tablet
100 mg PO BID Qty: 20 0RF
Referrals:
Aime Bustillo MD [Family Provider, Internal Medicine]
Activity Restrictions/Additional Instructions:
Seen Emergency Department for right-sided rib pain. The chest x-ray was performed but not yet read by radiology. CT scan was ordered to evaluate your rib pain further but you have elected to leave prior to this being completed. Return to the ER if
you develop worsening shortness of breath, chest pain, or other concerning symptoms.
Interventions
Interventions:
*General Assessment Last Done: 04/14/25 11:13
*Neglect/Abuse Screening Last Done: 04/14/25 11:13
*Risk Screen - Suicide (C-SSRS) Last Done: 04/14/25 11:15
*Nursing Disposition Last Done: 04/14/25 15:35
ED- Cardiac Assessment Last Done: 04/14/25 13:32
ED- Pulmonary Assessment Last Done: 04/14/25 13:32
Discharge Date and Time
Discharge Date/Time: 04/14/25 15:35
Print Language: URDU
[2025-04-14] MEDS: TYLENOL 1000 MG PO (13:44)
[2025-04-14 13:45] VITALS: BP 137/88
[2025-04-14 14:00] VITALS: BP 123/80
[2025-04-14 14:34] VITALS: BP 117/90
== END 2025-04-14 15:35 | disposition home or self-care (01) ==
LOC: EMR 10:57
PROVIDERS: Emergency Medicine; EMERGENCY PHYSICIAN Student in an Organized Health Care Education/Training Program; FAMILY PHYSICIAN Internal Medicine Geriatric Medicine
DX: R06.02 Shortness of breath (principal); R07.89 Other chest pain; Z11.52 Encounter for screening for COVID-19; I10 Essential (primary) hypertension; I45.4 Nonspecific intraventricular block; K21.9 Gastro-esophageal reflux disease without esophagitis; I48.91 Unspecified atrial fibrillation; Z85.3 Personal history of malignant neoplasm of breast; Z92.3 Personal history of irradiation; Z90.13 Acquired absence of bilateral breasts and nipples; Z79.01 Long term (current) use of anticoagulants; Z88.1 Allergy status to other antibiotic agents; Z88.3 Allergy status to other anti-infective agents; Z88.2 Allergy status to sulfonamides; Z88.8 Allergy status to other drugs, medicaments and biological substances; Z91.048 Other nonmedicinal substance allergy status
CPT/HCPCS: 99284; 71046; 80053; 85025; 87502; 87811; 93005